=== PATIENT | female | born 1970 | race Caucasian/White ===

== ENCOUNTER 2024-08-09 17:11 | Outpatient (CLI) | payer OTHER, SELFPAY ==
--- OUTSIDE RECORDS SUMMARY | 2024-08-09 17:16 | XMS_ITS | Clinical Summary ---
Author Organization [facility] Address [address] [place] [address] Care Team Providers Care Grocery Clerk Stocking Name Role Phone Tiffany Lua MD Primary Care Provider [phone] Source Comments This disclosure is being made pursuant to the [employer] program and maynot contain all information available regarding this patient.[facility] Allergies Active Allergy Reactions Criticality Noted Date Comments Adhesive Tape Rash Low 01/14/2016 Bacitracin-Polymyxin B Hives High 07/03/2017 Iodine Hives High 01/14/2016 Latex Hives High 07/03/2017 Morphine And Codeine Nausea And Vomiting Medium 2015 Medications omeprazole (PRILOSEC) 40 MG capsule Take 1 (one) capsule by mouth 2 (two) times daily. 60 capsule 2 07/07/19 22 Active fluticasone NASAL (FLONASE) 50 MCG/ACT nasal spray USE TWO SPRAYS IN EACH NOSTRIL DAILY 16 g 1 08/14/19 22 Active nystatin (MYCOSTATIN) cream Apply topically 2 (two) times daily. to affected area for 1 week 30 g 10/19/19 22 Active promethazine (PHENERGAN) 25 MG tablet Take 1 (one) tablet by mouth every 6 (six) hours as needed for Nausea. 15 tablet 04/19/19 23 Active prochlorperazin e (COMPAZINE) 10 MG tablet Take 1 (one) tablet by mouth every 6 (six) hours as needed for Nausea. 15 tablet 04/25/19 23 Active Hyoscyamine Sulfate SL (HYOSOL/LEVSIN SL) 0.125 MG SUBL sublingual tablet 1-2 tabs SL every 4 hours as needed stomach cramping, nausea 30 tablet 07/31/19 23 Active metoprolol tartrate (LOPRESSOR) 100 MG tablet Take 1 tablet, 1 hour prior to the test; bring 2nd tablet with you to the test 03/03/19 23 Active topiramate (TOPAMAX) 25 MG tablet Take 1 (one) tablet by mouth nightly. 30 tablet 06/01/19 24 Active HYDROcodone-liu taminophen (NORCO) 5-325 MG per tabletIndicatio ns:Pain, dental Take 1 (one) tablet by mouth every 6 (six) hours as needed for Pain. 10 tablet 06/05/19 24 Active LORazepam (ATIVAN) 1 MG tabletIndicatio ns:Insomnia, unspecified type TAKE 1 TABLET BY MOUTH EVERY NIGHT AT BEDTIME NEEDED FOR SLEEP 20 tablet 08/03/19 24 Active silver sulfADIAZINE (SILVADENE) 1 % cream Apply to affected area on hand daily 50 g 08/10/19 24 Active butalbital-acet aminophen-caffe ine 50-325-40 MG per tabletIndicatio ns:Other migraine without status migrainosus, not intractable TAKE 1 TABLET BY MOUTH EVERY 4 HOURS NEEDED FOR HEADACHE 10 tablet 08/22/19 24 Active naltrexone 4.5 MG capsule Take 1 (one) capsule by mouth nightly. 90 capsule 3 09/11/19 24 Active fluconazole (DIFLUCAN) 150 MG tabletIndicatio ns:Vaginal discharge Take 1 tablet, then repeat in 72 hours 2 tablet 09/13/19 24 Active acyclovir (ZOVIRAX) 400 MG tablet TAKE 1 TABLET BY MOUTH TWICE DAILY 60 tablet 6 11/17/19 24 Active acyclovir (ZOVIRAX) 5 % cream APPLY TO VAGINAL SORE FOUR TIMES DAILY FOR 10 DAYS 30 g 04/05/19 25 Active lidocaine (LIDODERM) 5 % Place 1 (one) patch onto the skin daily. To pain area and Remove patch after 12 hours. 30 patch 11 04/19/19 25 Active tiZANidine (ZANAFLEX) 2 MG tablet TAKE 1 TABLET BY MOUTH AT BEDTIME NEEDED FOR MUSCLE PAIN 30 tablet 3 06/25/19 25 Active baclofen (LIORESAL) 10 MG tablet TAKE 1 TABLET BY MOUTH TWICE DAILY 60 tablet 3 06/25/19 25 Active amphetamine-dex troamphetamine (ADDERALL) 10 MG tabletIndicatio ns:Multiple sclerosis,Chron ic fatigue Take 1 (one) tablet (10 mg total) by mouth 2 (two) times daily. 60 tablet 06/26/19 25 Active valACYclovir (VALTREX) 500 MG tablet TAKE 1 TABLET BY MOUTH DAILY. 30 tablet 3 07/28/19 25 Active thyroid (Hesperus Thyroid) 90 MG tablet TAKE 1 TABLET BY MOUTH FIVE TIMES A WEEK AND ONE AND ONE-HALF TABLETS TWO DAYS WEEKLY 96 tablet 3 07/28/19 25 Active tirzepatide-padmini ght management (Zepbound) 15 MG/0.5ML SOAJ Inject 15 (fifteen) mg into the skin once a week. 2 mL 07/28/19 25 Active tirzepatide-padmini ght management (Zepbound) 15 MG/0.5ML SOAJ Inject 15 (fifteen) mg into the skin once a week. 6 mL 03/28/19 25 025 Discontinued valACYclovir (VALTREX) 500 MG tablet TAKE 1 TABLET BY MOUTH DAILY. 30 tablet 6 04/04/19 25 025 Discontinued thyroid (Hesperus Thyroid) 90 MG tablet TAKE 1 TABLET BY MOUTH FIVE TIMES A WEEK AND ONE AND ONE-HALF TABLETS TWO DAYS WEEKLY 96 tablet 3 05/05/19 25 025 Discontinued Zepbound 15 MG/0.5ML SOAJ INJECT 15MG INTO THE SKIN ONCE WEEKLY 6 mL 07/28/19 25 025 Discontinued(* Change in therapy (sends cancel message to pharmacy)) Active Problems Problem Noted Date Diagnosed Date Hypothyroidism 01/08/2023 Insomnia 01/08/2023 Migraine 01/08/2023 Class 2 severe obesity with serious comorbidity in adult 09/27/2020 Muscle cramps 02/24/2019 Chronic pain syndrome 02/13/2018 Chronic fatigue 07/11/2016 Neurogenic bladder 12/28/2015 GRANT (obstructive sleep apnea) 12/17/2015 Multiple sclerosis 12/17/2015 Lyme disease 12/17/2015 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 Hypovitaminosis D 07/13/2015 Encounters Date Type Department Care Team Description 07/29/[address] [phone] Brittany Wood RN upcoming surgery 07/27/[address] [phone] Tiffany Lua MD 07/18/2024 Orders Only [facility] Centralized Scanning Tiffany Lua MD 06/24/[address] [phone] Brittany Wood, RN order for mammogram 06/24/[address] [phone] Tiffany Lua MD Multiple sclerosis; Chronic fatigue 05/28/[address] [phone] Brittany Wood RN Neglect/Denial of Critical Care 05/17/2024 4:30 PM CDT Office Visit [address] [phone] Tiffany Lua MD Class 2 severe obesity due to excess calories with serious comorbidity in adult, unspecified BMI (Primary Dx) 05/16/[address] [phone] Tiffany Lua MD Multiple sclerosis; Chronic fatigue 05/13/[address] [phone] Brittany Wood RN PA for zepbound and H and P for consultation 05/11/[address] [phone] Tiffany Lua MD Appointment from Last 3 Months Immunizations Immunization Administration Dates Next Due Influenza (FLUBLOK) RIV4 12/23/2019 Pneumococcal Polysaccharide-23 (Pneumovax 23) PP SV23 01/24/2020 Tetanus and Diphtheria (Generic) Td 05/10/2007 Tetanus, diphtheria and acel lular pertussis (Adacel)Tdap 09/03/2021 Family History Medical History Relation Name Comments Hypertension Brother Early Cardiac Heart Disease Maternal Grandfather Heart disease Maternal Grandfather High cholesterol Maternal Grandfather Hypertension Maternal Grandfather Obesity Maternal Grandfather Vision loss Maternal Grandfather Arthritis Maternal Grandmother Asthma Maternal Grandmother Breast cancer Maternal Grandmother Cancer Maternal Grandmother Depression Maternal Grandmother Diabetes Maternal Grandmother Hearing loss Maternal Grandmother Hypertension Maternal Grandmother Obesity Maternal Grandmother Stroke Maternal Grandmother Asthma Mother Depression Mother Hypertension Mother Obesity Mother Arthritis Paternal Grandfather Diabetes Paternal Grandfather Hearing loss Paternal Grandfather Heart disease Paternal Grandfather High cholesterol Paternal Grandfather Hypertension Paternal Grandfather Vision loss Paternal Grandfather Arthritis Paternal Grandmother Depression Paternal Grandmother Hearing loss Paternal Grandmother Heart disease Paternal Grandmother Hypertension Paternal Grandmother Obesity Paternal Grandmother Relation Name Status Comments Brother Alive Daughter Alive Father Alive Maternal Grandfather Maternal Grandmother Mother Alive Paternal Grandfather Paternal Grandmother Alive Social History Tobacco Use Types Packs/Day Years Used Date Smoking Tobacco: Never Smokeless Tobacco: Never Tobacco Cessation:Counseling Given: Yes Alcohol Use Standard Drinks/Week Comments Yes 0 (1 standard drink = 0.6 oz pur e alcohol) PHQ-2 Answer Date Recorded PHQ-2 Total Score 0 08/30/2023 Comments No Sex and Gender Information Value Date Recorded Sex Assigned at Not on file Legal Sex Female 8:59 AM CDT Gender Identity Not on file Sexual Orientation Not on file Last Filed Vital Signs Vital Sign Reading Time Taken Comments Blood Pressure 124/88 05/17/2024 4:50 PM CDT Pulse 92 05/17/2024 4:50 PM CDT Temperature 36.4 C (97.6 F) 02/09/2024 3:54 PM LOOP PULLER Respiratory Rate 16 05/17/2024 4:50 PM CDT Oxygen Saturation 99% 05/17/2024 4:50 PM CDT Inhaled Oxygen Concentration - - Weight 81.2 kg (179 lb) 05/17/2024 4:50 PM CDT Height 162.6 cm (5' 4) 05/17/2024 4:50 PM CDT Body Mass Index 30.73 05/17/2024 4:50 PM CDT Plan of Treatment Upcoming Encounters Date Type Department Care Team (Late st Contact Info) Description 08/21/2024 3:45 PM CDT Appointment [facility] [address] [place] [phone] Tiffany Lua MD [address] [place] [phone] Health Maintenance Due Date Last Done Comments CT Colonography 1972 Colonoscopy 1972 Colorectal Cancer Screening 1972 Fecal DNA Test 1972 HPV 1972 Sigmoidoscopy 1972 Annual Wellness Visit 1990 FOBT/FIT 1992 Pneumococcal Vaccines 50+ (2 of 2 - PCV) 2022 01/24/2020 Zoster (Shingles) Vaccine 50+ (1 of 2) 2022 Breast Cancer Screening-Mammogram 01/27/2023 01/27/2021, 07/30/2018 COVID-19 Vaccine ( - season) 2023 Influenza Vaccine (#1) 2023 12/23/2019 Lab-Diabetes Screening 08/29/2024 , 02/23/2022, 09/22/2021, Additional history exists Lab-Hepatitis C Screening 08/29/2024 Po stponed from 1972 (Provider Discretion) Lab-Cholesterol Screening 08/29/20282023, 05/13/2020, 12/12/2016 Tetanus/Pertussis Vaccine Teen/Adult (3 - Td or Tdap) 09/04/2031 09/03/2021, 05/10/2007 RSV Adult (1 - 1-dose 75+ series) 10/16/2047 Cervical Cancer Screening Discontinued HIB Vaccine Aged Out No longer eligi ble based on patient's age to complete this topic HPV Vaccine (F:9-26YO,M: 9-22) Aged Out No longer eligible based on patient's age to complete this topic Hepatitis A Vaccine Aged Out No longe r eligible based on patient's age to complete this topic Hepatitis B Vaccine Discontinued IPV Vaccine Aged Out No longer eligi ble based on patient's age to complete this topic Meningococcal Conjugate Vaccine Aged Out No longer eligible based on patient's age to complete this topic Pap Smear Discontinued RSV < 20 Months Aged Out No longer el igible based on patient's age to complete this topic Procedures Procedure Name Priority Date/Time Associated Diagnosis Comments LIPID PANEL Routine 08/30/2023 11:00 AM CDT Routine general medical examination at a health care facility COMPREHENSIVE METABOLIC PANEL Routine 08/30/2023 11:00 AM CDT Routine general medical examination at a health care facility MM DIGITAL BILATERAL DIAGNOSTIC MAMMOGRAM Routine 01/27/2021 from Last 3 Months or Most Recently Relevant to Health Maintenance Results * (ABNORMAL) Lipid panel (08/30/2023 11:00 AM CDT) Cholesterol 209(H) 0 - 200 mg/dL [facility] Comment:Cholesterol borderli ne high, 200-239 mg/dL. Clinical correlation is essential. Triglycerides 189 0 - 200 mg/dL [facility] HDL Cholesterol 40(L) >60 mg/dL [facility] LDL, Calculated 131.2 mg/dL [facility] Comment: <100 Optimal 100-129 Near Optimal/Above Optimal 130-159 Borderline High 160-189 High >or =190 Very High Cholesterol/HDL Ratio 5.2 [facility] Comment:HDL/Chol Ratio Widener ge Risk 1:4.4-1:7.0, Clinical Correlation essential. Blood 08/30/2023 11:0 0 AM CDT 08/30/2023 11:00 AM CDT Comment:- Narrative [facility] - 08/30/2023 3:59 PM CDT Testing performed at [facility], [address] [place] [id number]. CLIA [id number] Phone [phone] Ext [phone] Pipe Line Inspector William Tanner MD Tiffany Lua MD LAB BLOOD ORDERABLES Final Result [facility] [address] [phone] * Comprehensive metabolic panel (08/30/2023 11:00 AM CDT) [facility] Glucose 91 60 - 100 mg/dL [facility] Comment: Fasting Plasma Glucose (FPG) <100 MG/DL Impaired Fasting Glucose (IFG) 100-125 MG/DL Provisional Diagnosis of Diabetes Mellitus > or = 126 MG/DL (Diagnosis Must Be Confirmed) BUN 13 10 - 20 mg/dL [facility] Creatinine 0.72 0.60 - 1.20 mg/dL [facility] Glomerular Filtration Rate Estimate 101 >90 mL/min/1.7 3m2 [facility] Comment:The estimated GFR peters s not been validated for women or patients with serious comorbid conditions, or with extremes of body size, muscle mass, or nutritional status. Calcium 9.9 8.4 - 10.2 mg/dL [facility] Sodium 139 136 - 145 mmol/L [facility] Potassium 4.2 3.5 - 4.6 mmol/L [facility] Chloride 105 99 - 111 mmol/L [facility] CO2 25.3 21.0 - 32.0 mmol/L [facility] Albumin 4.1 3.5 - 5.0 g/dL [facility] Total Protein 7.4 6.1 - 8.0 g/dL [facility] Bilirubin Total 0.3 0.2 - 1.2 mg/dL [facility] Alkaline Phosphatase 46 40 - 150 U/L [facility] AST 16 5 - 34 U/L [facility] ALT 20 0 - 55 U/L [facility] Blood 08/30/2023 11:0 0 AM CDT 08/30/2023 11:00 AM CDT Comment:- Narrative [facility] - 08/30/2023 3:59 PM CDT Testing performed at [facility], [address] [place] [address]. CLIA [id number] Phone [phone] Ext [phone] Pipe Line Inspector William Tanner MD Tiffany Lua MD LAB BLOOD ORDERABLES Final Result [facility] [address] [place] [address] [phone] * MM Digital Bilateral Diagnostic Mammogram (01/27/2021) Anatomical Region Laterality Modality Breast Bilateral Mammography Tiffany Lua MD IMG MAMMOGRAPHY ORDERABLES Final Result from Last 3 Months or Most Recently Relevant to Health Maintenance Insurance Care Teams Grocery Clerk Stocking Relationship Specialty Start Date End Date Tiffany Lua MD [address] [place] [phone] PCP - General Family Medicine 09/14/15
--- OUTSIDE RECORDS SUMMARY | 2024-08-09 17:16 | XMS_ITS | Encounter Summary ---
Author Organization [employer] Address [address] [place] [address] Care Team Providers Care Waiter/Waitress Take Out Name Role Phone Tiffany Lua MD Primary Care Provider [phone] Encounter Details Date Type Department Care Team (Late st Contact Info) Description 03/14/2024 Telephone [facility] [address] [place] [address] Tiffany Lua MD [address] [place] [address] Social History Tobacco Use Types Packs/Day Years Used Date Smoking Tobacco: Never Smokeless Tobacco: Never Alcohol Use Standard Drinks/Week Comments Yes 0 (1 standard drink = 0.6 oz pur e alcohol) PHQ-2 Answer Date Recorded PHQ-2 Total Score 0 08/30/2023 Comments No Sex and Gender Information Value Date Recorded Sex Assigned at Not on file Legal Sex Female 8:59 AM CDT Gender Identity Not on file Sexual Orientation Not on file documented as of this encounter Miscellaneous Notes * Telephone Encounter - Tiffany Lua MD - 03/14/2024 12:17 PM DIRECTOR PUBLIC SERVICE Again, the same labs were sent from [facility] that I can see on [employer] from 02/26/2024. None of the requested labs is sent, nor on [employer]. B12, progesterone, vit D, estradiol which is page 3 of the 02/14/2024 labs. The orders are scanned into system. [facility] lab to check why these not done. Jss CTOR PUBLIC SERVICE * Telephone Encounter - Tiffany Lua MD - 03/14/2024 12:09 AM DIRECTOR PUBLIC SERVICE I called [facility] Med Records again - on 03/07/2024. Looking for pending labs from 02/26/2024 that are not in [employer]: Vit D, Vit B12, progesterone, estradiol. jss CTOR PUBLIC SERVICE documented in this encounter Plan of Treatment Upcoming Encounters Date Type Department Care Team (Late st Contact Info) Description 08/21/2024 3:45 PM CDT Appointment [facility] [address] [place] [address] Tiffany Lua MD [address] [place] [address] documented as of this encounter Visit Diagnoses Not on filedocumented in this encounter Additional Health Concerns Assessment Noted Time PHQ-9 Depression Total Score: 13 023 11:44 AM DIRECTOR PUBLIC SERVICE A Body Mass Index follow-up plan has been documented for the patient 05/24/2016 12:10 AM CDT documented as of this encounter Care Teams Waiter/Waitress Take Out Relationship Specialty Start Date End Date Tiffany Lua MD [address] [place] [address] PCP - General Family Medicine 09/14/15 documented as of this encounter
--- OUTSIDE RECORDS SUMMARY | 2024-08-09 17:17 | XMS_ITS | Encounter Summary ---
Author Organization [facility] Address [address] [facility] [place] [address] Phone Care Team Providers Care Automatic Door Mechanic Name Role Phone Tiffany Lua MD Primary Care Provider + Tiffany Lua MD Unavailable [phone] Encounter Details Date Type Department Care Team (Late st Contact Info) Description 10/04/2022 Lab Requisition [facility] [address] [place] [address] Tiffany Lua MD [address] [place] [address] Social History Tobacco Use Types Packs/Day Years Used Date Smoking Tobacco: Never Assessed Comments No Sex and Gender Information Value Date Recorded Sex Assigned at Not on file Legal Sex Female 4:24 PM CDT Gender Identity Not on file Sexual Orientation Not on file documented as of this encounter Plan of Treatment Not on file documented as of this encounter Procedures Procedure Name Priority Date/Time Associated Diagnosis Comments O & P, TRAVEL HX OR IMMUNOCOMPROMISED, FECES, DIAMOND OPE Routine 10/03/2022 6:32 PM CDT documented in this encounter Results * O & P, TRAVEL HX OR IMMUNOCOMPROMISED, FECES, DIAMOND OPE (10/03/2022 6:32 PM CDT) OPE, OVA AND PARASITE, MICROSCOPY, F SEE NOTE 10/11/2022 12:30 PM CDT [facility] Comment: SOURCE: STOOL, STLP OVA AND PARASITE, MICROSCOPY, F FINAL No parasites seen. Cryptosporidium, Cyclospora, and microsporidia are not readily detected by this method. Single negative specimen does not rule out parasitic infection. Test Performed by: [facility] [place] [address] Client Services Assistant: Sammy Hidalgo M.D. Ph.D.; CLIA# [id number] Stool Non-Phlebotomy Collection / Unknown 10/03/2022 6:32 PM CDT 10/04/2022 9:49 PM CDT us Tiffany Lua MD LAB SEND OUTS Final Re sult [facility] documented in this encounter Visit Diagnoses Not on filedocumented in this encounter Care Teams Automatic Door Mechanic Relationship Specialty Start Date End Date Tiffany Lua MD [address] [place] [address] PCP - General Family Medicine 04/26/22 Tiffany Lua MD [address] [place] [address] Family Medicine 04/26/22 documented as of this encounter
--- OUTSIDE RECORDS SUMMARY | 2024-08-09 17:17 | XMS_ITS | Encounter Summary ---
Author Organization [facility] Health[facility] Address [address] [facility] [place] [address] Phone Care Team Providers Care Swatch Cutter Name Role Phone Tiffany Lua MD Primary Care Provider + Tiffany Lua MD Primary Care Provider + Tiffany Lua MD Unavailable [phone] Encounter Details Date Type Department Care Team (Late st Contact Info) Description 02/03/2021 Lab Requisition [facility] [address] [place] [address] Tiffany Lua MD [address] [place] [address] Social History Tobacco Use Types [...] Procedure Name Priority Date/Time Associated Diagnosis Comments OVA AND PARASITE, CONCENTRATE AND PERMANENT SMEAR, MICROSCOPY, FECES, DIAMOND OAP Routine 02/03/2021 8:09 AM BRIDGE WORKER documented in this encounter Results * OVA AND PARASITE, CONCENTRATE AND PERMANENT SMEAR, MICROSCOPY, FECES, DIAMOND OAP (02/03/2021 8:09 AM BRIDGE WORKER) PARASITIC EXAMINATION (06184) SEE NOTE 02/07/2021 4:04 PM BRIDGE WORKER [facility] Comment: SOURCE: STOOL OVA AND PARASITE, MICROSCOPY, F FINAL No parasites seen. Cryptosporidium, Cyclospora, and microsporidia are not readily detected by this method. Single negative specimen does not rule out parasitic infection. Test Performed by: [facility] [address] [place] [address] Poultry Veterinarian: Sammy Hidalgo M.D. Ph.D.; CLIA# [id number] Other 02/03/2021 8:09 AM BRIDGE WORKER 02/03/2021 8:27 PM BRIDGE WORKER us Tiffany Lua MD BODY FLUIDS & STOOLS ORD ERABLES Final Result [address] [address], documented in this encounter Visit Diagnoses Not on filedocumented in this encounter Additional Health Concerns Infection Onset Date Last Indicated Resolved Time C. difficile Rule-Out 02/03/2021 02/03/20212020 10:43 PM BRIDGE WORKER documented as of this encounter Care Teams Swatch Cutter Relationship Specialty Start Date End Date Tiffany Lua MD [address] [place] [address] [phone] PCP - General Family Medicine 07/13/15 04/25/22 Tiffany Lua MD [address] [place] [address] [phone] PCP - General Family Medicine 04/26/22 Tiffany Lua MD [address] [place] [address] [phone] Family Medicine 04/26/22 documented as of this encounter
--- OUTSIDE RECORDS SUMMARY | 2024-08-09 17:17 | XMS_ITS | Clinical Summary ---
Author Organization [facility] Address [address] [place] [address] Phone Care Team Providers Care Associate Sales Name Role Phone Tiffany Lua MD Primary Care Provider + Tiffany Lua MD Unavailable [phone] Allergies Active Allergy Reactions Criticality Noted Date Comments Codeine Other (see Comments) 07/09/2015 Iodine Hives 12/28/2015 Morphine Rash 04/25/2022 Morphine And Codeine Vomiting 11/28/2005 Sulfa Antibiotics Vomiting 11/28/2005 Sulfa Antibiotics Other (see Comments) 07/09/19 16 Adhesive Tape Rash 07/09/2015 Medications acyclovir (ZOVIRAX) 400 MG Tablet Take 400 mg by mouth daily. Active GABAPENTIN PO Take 400 mg by mouth 2 times daily. Active omeprazole (PRILOSEC) 20 MG CAPSULE DELAYED RELEASE Take 20 mg by mouth daily. Reported on 07/11/2016 Active nabumetone (RELAFEN) 500 MG Tablet Take 500 mg by mouth 2 times daily. Active HYDROcodone-liu taminophen (NORCO) 5-325 MG Tablet Take 1 Tab by mouth every 4 hours as needed for Pain. Active tiZANidine (ZANAFLEX) 2 MG Capsule Take 2 mg by mouth 2 times daily as needed. Reported on 07/11/2016 Active LORazepam (ATIVAN) 1 MG Tablet Take 1 mg by mouth 3 times daily as needed. Active thyroid (ARMOUR THYROID) 60 MG Tablet Take 90 mg by mouth daily. Active Cholecalciferol (VITAMIN D3) 69580 UNITS Tablet Take by mouth daily. Active biotin 300 MCG Tablet Take 300 mcg by mouth daily. Active other Low Dose Naltrexone (LDN) 4.5 mg po daily 90 Each 3 7 Active amphetamine-dex troamphetamine (ADDERALL) 10 MG Tablet Take 1 Tab by mouth 2 times daily. 60 Tab 0 7 Active amphetamine-dex troamphetamine (ADDERALL) 10 MG Tablet Take 1 Tab by mouth 2 times daily. 60 Tab 0 7 Active amphetamine-dex troamphetamine (ADDERALL) 10 MG Tablet Take 1 Tab by mouth 2 times daily. 60 Tab 0 7 Active minocycline (MINOCIN, DYNACIN) 100 MG Capsule Take 100 mg by mouth 2 times daily. Active carBAMazepine (CARBATROL) 100 MG CAPSULE SR 12 HR Take 1 Cap by mouth 2 times daily (with meals). 360 Cap 3 9 Active Active Problems Problem Noted Date Diagnosed Date Chronic fatigue 07/11/2016 Neurogenic bladder 12/28/2015 Hypovitaminosis D 07/13/2015 MS (multiple sclerosis) 07/13/2015 Social History Tobacco Use Types Packs/Day Years Used Date Smoking Tobacco: Former Smokeless Tobacco: Never Alcohol Use Standard Drinks/Week Comments No 0 (1 standard drink = 0.6 oz pur e alcohol) Comments No Sex and Gender Information Value Date Recorded Sex Assigned at Not on file Legal Sex Female 4:24 PM CDT Gender Identity Not on file Sexual Orientation Not on file Last Filed Vital Signs Vital Sign Reading Time Taken Comments Blood Pressure 111/78 04/26/2022 1:38 AM BELL ATTENDANT Pulse 80 04/26/2022 1:38 AM BELL ATTENDANT Temperature 37.1 C (98.7 F) 04/25/2022 3:55 PM BELL ATTENDANT Respiratory Rate 14 04/26/2022 1:38 AM BELL ATTENDANT Oxygen Saturation 95% 04/26/2022 1:38 AM BELL ATTENDANT Inhaled Oxygen Concentration - - Weight 93 kg (205 lb) 04/25/2022 3:55 PM BELL ATTENDANT Height 162.6 cm (5' 4) 04/25/2022 3:55 PM BELL ATTENDANT Body Mass Index 35.19 04/25/2022 3:55 PM BELL ATTENDANT Plan of Treatment Health Maintenance Due Date Last Done Comments Hepatitis C Virus (HCV) Screening 1972 Mammogram 1972 Hepatitis B Immunization (1 of 3 - 19+ 3-dose series) 10/16/1991 Cologuard 2017 Colonoscopy 2017 Colorectal Cancer Screening 2017 Immunochemical Fecal Occult Blood 2017 Pneumococcal Immunization (5 0+ years) (1 of 1 - PCV) 2022 Zoster Immunization (1 of 2) 2022 SARS-COV-2 Immunization (1 - 2023- season) 2023 Influenza Immunization (Seas on Ended) 2024 12/23/2019 Respiratory Syncytial Virus (RSV) Immunization (Adult) (1 - 1-dose 75+ series) 10/16/2047 DTaP/Tdap/Td Immunization Discontinued 2021, 05/10/2007 TdaP Immunization Completed 09/03/2021 Human Papillomavirus (HPV) Immunization Aged Out No longer eligible based on patient's age to complete this topic Meningococcal Immunization (ACWY) Aged Out No longer eligible based on patient's age to complete this topic Rotavirus Immunization Aged Out No lo nger eligible based on patient's age to complete this topic Insurance [employer] ASA Care Teams Associate Sales Relationship Specialty Start Date End Date Tiffany Lua MD [address] [place] [address] PCP - General Family Medicine 04/26/22 Tiffany Lua MD [address] [place] [address] Family Medicine 04/26/22
--- OUTSIDE RECORDS SUMMARY | 2024-08-09 17:17 | XMS_ITS | Encounter Summary ---
Author Organization [employer] Address [address] [place] [address] Care Team Providers Care Senior Net Developer Architect Name Role Phone Tiffany Lua MD Primary Care Provider [phone] Reason for Visit * Reason Comments Medication Refill Encounter Details Date Type Department Care Team (Late st Contact Info) Description 07/27/2024 Refill [facility] [address] [place] [address] Tiffany Lua MD [address] [place] [address] Social History Tobacco Use Types [...] Telephone Encounter - Tiffany Lua MD - 07/27/2024 10:43 AM CDT She contacted my phone at [phone] asking for refills since her insurance runs out today. I called to verify how she is taking the medicine because 3 month supply was filled in February. She states she isusing it every 10 days. Last fill at pharmacy was 06/19/2024. Discussed needs to be careful with bowel motility with the way she is taking it. The 02/2024 order was for 3 months - pharmacy only giving one month at a time. Therefore, script this time for only one month. Jss documented in this encounter Plan of Treatment Upcoming Encounters Date Type Department Care Team (Late st Contact Info) Description 08/21/2024 3:45 PM CDT Appointment [facility] [address] [place] [address] Tiffany Lua MD [address] [place] [address] documented as of this encounter Visit Diagnoses Not on filedocumented in this encounter Additional Health Concerns Assessment Noted Time PHQ-9 Depression Total Score: 13 023 11:44 AM SODA ROOM OPERATOR A Body Mass Index follow-up plan has been documented for the patient 05/24/2016 12:10 AM CDT documented as of this encounter Care Teams Senior Net Developer Architect Relationship Specialty Start Date End Date Tiffany Lua MD [address] [place] [address] PCP - General Family Medicine 09/14/15 documented as of this encounter
--- OUTSIDE RECORDS SUMMARY | 2024-08-09 17:17 | XMS_ITS | Encounter Summary ---
Author Organization [facility] Address [address] [place] [address] Phone Care Team Providers Care Food Technician Name Role Phone Tiffany Lua MD Primary Care Provider + Tiffany Lua MD Primary Care Provider + Tiffany Lua MD Unavailable [phone] Encounter Details Date Type Department Care Team (Late st Contact Info) Description 07/10/2020 Lab Requisition [facility] [address] [place] [address] Tiffany Lua MD [address] [place] [address] Social History Tobacco Use Types [...] Procedure Name Priority Date/Time Associated Diagnosis Comments SARS CORONOVIRUS-2 IGG Routine 07/10/2020 10:41 AM CDT documented in this encounter Results * SARS CORONOVIRUS-2 IGG (07/10/2020 10:41 AM CDT) INDEX (S/C) 0.0 <1.4 S/C [facility] [id number] A 07/11/2020 9:45 AM CDT [facility], SARS-COV-2 IGG Negative Negative [facility] [id number] A 07/11/2020 9:45 AM CDT [facility] Blood 07/10/2020 10:4 1 AM CDT 07/10/2020 9:44 PM CDT Narrative [facility] - 07/11/2020 9:45 AM CDT This test has been authorized by the FDA under an Emergency Use Authorization (EUA) only. Negative results do not rule out SARS-CoV-2 infection, particularly in those who have been in contact with the virus. Follow-up testing with a molecular diagnostic should be considered to rule out infection in these individuals. Results from antibody testing should not be used as the sole basis to diagnose or exclude SARS-CoV-2 infection or to inform infection status. Positive results may be due to past or present infection with guu-QAIT-IbM-2 coronavirus strains, such as coronavirus HKU1, NL63, OC43, or 229E. Not for the screening of donated blood. IGG: Information for Healthcare Providers: https://www.fda.gov/media/301020/download Information for Patients: https://www.fda.gov/media/429155/download IGM: Information for Healthcare Providers: https://www.fda.gov/media/497705/download Information for Patients: https://www.fda.gov/media/481436/download us Tiffany Lua MD CHEMISTRY ORDERABLES Fin al Result [facility] [address] [place] [address], documented in this encounter Visit Diagnoses Not on filedocumented in this encounter Additional Health Concerns Infection Onset Date Last Indicated Resolved Time C. difficile Rule-Out 02/03/2021 02/03/20212020 10:43 PM FRANCHISE DEVELOPMENT MANAGER documented as of this encounter Care Teams Food Technician Relationship Specialty Start Date End Date Tiffany Lua MD [address] [place], [place] [id number] PCP - General Family Medicine 07/13/15 04/25/22 Tiffany Lua MD [address], [place] [id number] PCP - General Family Medicine 04/26/22 Tiffany Lua MD [address] [place] [address] Family Medicine 04/26/22 documented as of this encounter
--- OUTSIDE RECORDS SUMMARY | 2024-08-09 17:17 | XMS_ITS | Encounter Summary ---
Author Organization [employer] Address [address] [place] [address] Care Team Providers Care Recreational Assistant Name Role Phone Tiffany Lua MD Primary Care Provider [phone] Reason for Visit * Reason Onset Date Comments upcoming surgery 07/29/2024 Encounter Details Date Type Department Care Team (Late st Contact Info) Description 07/29/2024 Telephone [facility] [address] [place] [address] Brittany Wood RN [address] [place] [address] upcoming surgery Social History Tobacco Use Types Packs/Day Years [...] Telephone Encounter - Tiffany Lua MD - 08/09/2024 12:22 PM CDT Noted. Jss * Telephone Encounter - Brittany Wood RN - 08/09/2024 9:52 AM CDT Called patient to see what was going on. She states that the surgeon said they would measure when they were doing the surgery. Then the next day and anesthe. Called her the next day they said due to her multiple sclerosis she has to have this procedure in a hospital. So they have now referred her to [facility], and hopefully she will have surgery on September 03, she has some upcominglabs and testing. She says her stomach hurts all the time and they surgeon thinks this will help. Insurance is saying this is cosmetic and she states it is not. She states she has to put Nystatin powder on this area 4 times a day and yesterday she got busy and did not get this done and by the time she got home, the area smelled like a smelly armpit. She is asking for dr to measure this externally. Appointment made. Brittany Wood RN * Telephone Encounter - Tiffany Lua MD - 08/07/2024 5:29 PM CDT None. Jss * Telephone Encounter - Renetta Hazel CMA - 08/07/2024 4:42 PM CDT Have you received? * Telephone Encounter - Tiffany Lua MD - 07/30/2024 7:13 AM CDT Await the surgeon information. Jss * Telephone Encounter - Brittany Wood RN - 07/29/2024 2:00 PM CDT I called patient and she was at the surgeon's office. This information is needed for her insurance,she has new insurance that started today. She has to have this documented by the surgeon and the PCP. I asked her to contact this office after that appointment. Brittany Wood RN * Telephone Encounter - Tiffany Lua MD - 07/29/2024 12:15 PM CDT She needs to have the surgeon contact me exactly what he wants for information. Otherwise, did the surgeon not examine her himself to have documented this for his surgery? Jss * Telephone Encounter - Brittany Wood RN - 07/29/2024 12:05 PM CDT Voicemail from patient stating that she has an upcoming surgery and she has to have it documented how many finger widths her diastasis is. She said she needs seen tomorrow to have this documented. Have come to urgent care tomorrow morning? Brittany Wood RN documented in this encounter Plan of Treatment Upcoming Encounters Date Type Department Care Team (Late Contact Info) Description 08/21/2024 3:45 PM CDT Appointment [facility] [address] [place] [address] Tiffany Lua MD [address] [place] [address] documented as of this encounter Visit Diagnoses Not on filedocumented in this encounter Additional Health Concerns Assessment Noted Time PHQ-9 Depression Total Score: 13 023 11:44 AM FELLER MACHINE OPERATOR A Body Mass Index follow-up plan has been documented for the patient 05/24/2016 12:10 AM CDT documented as of this encounter Care Teams Recreational Assistant Relationship Specialty Start Date End Date Tiffany Lua MD [address] [place] [address] PCP - General Family Medicine 09/14/15 documented as of this encounter
--- OUTSIDE RECORDS SUMMARY | 2024-08-09 17:17 | XMS_ITS | Encounter Summary ---
Author Organization [facility] Address [address] [facility] [place] [address] Phone Care Team Providers Care Photo Engraver Name Role Phone Tiffany Lua MD Primary Care Provider + Tiffany Lua MD Primary Care Provider + Tiffany Lua MD Unavailable [phone] Encounter Details Date Type Department Care Team (Late st Contact Info) Description 02/03/2021 Lab Requisition [facility] [address] [place] [address] Tiffany Lua MD [address] [place] [address] Social History Tobacco Use Types [...] Procedure Name Priority Date/Time Associated Diagnosis Comments C. DIFFICILE BY PCR Routine 02/03/2021 8 :09 AM OPTICAL MECHANIC APPRENTICE documented in this encounter Results * C. DIFFICILE BY PCR (02/03/2021 8:09 AM OPTICAL MECHANIC APPRENTICE) C DIFF TOXIN DNA BY PCR Negative Negative, Invalid [facility] CEPHEID GENEXPERT 02/03/2021 10:43 PM OPTICAL MECHANIC APPRENTICE [facility] Other STOOL SPECIMEN / Unknown 02/03/2021 8:09 AM OPTICAL MECHANIC APPRENTICE 02/03/2021 8:29 PM OPTICAL MECHANIC APPRENTICE us Tiffany Lua MD MICROBIOLOGY - GENERAL O RDERABLES Final Result [facility] [address] [place] [address], documented in this encounter Visit Diagnoses Not on filedocumented in this encounter Additional Health Concerns Infection Onset Date Last Indicated Resolved Time C. difficile Rule-Out 02/03/2021 02/03/20212020 10:43 PM OPTICAL MECHANIC APPRENTICE documented as of this encounter Care Teams Photo Engraver Relationship Specialty Start Date End Date Tiffany Lua MD [address] [place] [address] PCP - General Family Medicine 07/13/15 04/25/22 Tiffany Lua MD [address] [place] [id number] PCP - General Family Medicine 04/26/22 Tiffany Lua MD [address] [place] [address] Family Medicine 04/26/22 documented as of this encounter
--- OUTSIDE RECORDS SUMMARY | 2024-08-09 17:17 | XMS_ITS | Encounter Summary ---
Author Organization [facility] Address [address] [place] [address] Care Team Providers Care Counter Sales Representative Name Role Phone Tiffany Lua MD Primary Care Provider [phone] Encounter Details Date Type Department Care Team (Late Contact Info) Description 07/18/2024 Orders Only [facility] Centralized Scanning Tiffany Lua MD [address] [place] [address] Social History Tobacco Use Types [...] as of this encounter Plan of Treatment Upcoming Encounters Date Type Department Care Team (Late Contact Info) Description 08/21/2024 3:45 PM CDT Appointment [facility] [address] [place] [address] Tiffany Lua MD [address] [place] [address] documented as of this encounter Procedures Procedure Name Priority Date/Time Associated Diagnosis Comments LAB MISC Routine 02/26/2024 7:25 AM HOTEL CASINO FLOORPERSON TSH Routine 02/26/2024 7:25 AM HOTEL CASINO FLOORPERSON COMPREHENSIVE METABOLIC PANEL Routine 02/26/2024 7:25 AM HOTEL CASINO FLOORPERSON documented in this encounter Results * Laboratory Miscellaneous (02/26/2024 7:25 AM HOTEL CASINO FLOORPERSON) Blood BLOOD SPECIMEN / Unknown Tiffany Lua MD LAB BLOOD ORDERABLES Final Result * Comprehensive metabolic panel (02/26/2024 7:25 AM HOTEL CASINO FLOORPERSON) Blood us Tiffany Lua MD LAB BLOOD ORDERABLES Final Result * TSH (02/26/2024 7:25 AM HOTEL CASINO FLOORPERSON) Blood BLOOD SPECIMEN / Unknown Tiffany Lua MD LAB BLOOD ORDERABLES Final Result Performing Organization Address City/State/[facility] Co de Phone Number EXTERNAL NON UPH - NO INTERFACE documented in this encounter Visit Diagnoses Not on filedocumented in this encounter Additional Health Concerns Assessment Noted Time PHQ-9 Depression Total Score: 13 023 11:44 AM HOTEL CASINO FLOORPERSON A Body Mass Index follow-up plan has been documented for the patient 05/24/2016 12:10 AM CDT documented as of this encounter Care Teams Counter Sales Representative Relationship Specialty Start Date End Date Tiffany Lua MD [address] [place] [address] PCP - General Family Medicine 09/14/15 documented as of this encounter
--- OUTSIDE RECORDS SUMMARY | 2024-08-09 17:17 | XMS_ITS | Data Portability ---
Author Organization [facility], [address] [place] [address] [place]rology ([place]) Address [address] [place] [address] Care Team Providers Care Milking System Installer Name Role Phone ITZEL FORBES Primary Care Provider Assessment No assessment recorded. Plan of Treatment Reminders Order Date Submit Date Provider Last Modified By Organization Details Last Modified Time Details Appointments None recorded. Lab None recorded. Referral None recorded. Procedures None recorded. Surgeries None recorded. Imaging None recorded. Medication Orders Augmentin 875 mg-125 mg tablet 2023 [id number], [address], [place], [id number], 14:32:24 fluconazole 150 mg tablet 2023 024 [id number], [address], [place], [id number], 14:32:24 Patient TargetsNo targets recorded. Patient Instructions Encounter Date Encounter Id Patient Instructions Last Modified By Organization Details Last Modified Time 06/04/2023 [id number] Take antibiotics as prescribed. Practice good dental hygiene by brushing teeth 2-3x daily. Floss daily. See a dentist every 6 months for regular cleanings. Tylenol or Motrin may be used as needed for pain. Follow up with dentist as soon as possible. We discussed the expected course of improvement, and instructed to seek emergency medical care for any new or worsening symptoms. Patient voices understanding of all and is agreeable to the plan of care. [email or web address] Not available 06/04/2023 15:50:25 Reason for Referral None Reported. Problems Name Problem SNOMED Code Status Onset Date Resolution Date Notes Provider Name and Address Organization Details Recorded Time Disorder of teeth AND/OR supporting structures 498338391 Active 2023 REECE WAGONER APRN-PHOTOGRAPHER STILL [address] [place] [address], [phone], [facility] 4 14:30:12 Candidiasis of vagina 73639846 Active 2023 REECE WAGONER APRN-PHOTOGRAPHER STILL [address] [place] [address], [phone], [facility] 4 14:31:50 Problem Notes None recorded. Medical Equipment None Reported. Medications Name Sig Start Date Stop Date Status Note LastModified by Organization Details LastModified Time clindamycin HCl 300 mg capsule TAKE 2 CAPSULES BY MOUTH NOW THEN TAKE 1 CAPSULE THREE TIMES DAILY UNTIL ALL TAKEN active Not Available Not Available No t Available fluconazole 150 mg tablet TAKE 1 TABLET BY MOUTH EVERY DAY DIRECTED FOR 10 DAYS active Not Available Not Available No t Available hydrocodone 5 mg-acetaminoph en 325 mg tablet TAKE 1 TABLET BY MOUTH EVERY 6 HOURS NEEDED FOR PAIN active Not Available Not Available No t Available dextroamphetam ine-amphetamin e 10 mg tablet active Not Available Not Availab le Not Available topiramate 25 mg tablet TAKE 1 TABLET BY MOUTH NIGHTLY active Not Available Not Available No t Available acyclovir 400 mg tablet active Not Available Not Available No t Available lorazepam 1 mg tablet active Not Available Not Available Not Available methylphenidat e ER 36 mg tablet,extende d release 24 hr active Not Available Not Available Not Available amoxicillin 875 mg-potassium clavulanate 125 mg tablet TAKE 1 TABLET BY MOUTH EVERY 12 HOURS WITH MEALS FOR 10 DAYS active Not Available Not Available No t Available acyclovir active Not Available Not Nirmala ilable Not Available Adderall active Not Available Not Avai lable Not Available Vitals Date Recorded Body weight Body temperature Heart rate Respiratory rate Oxygen saturation Oxygen saturation in Arterial blood by Pulse oximetry Systolic blood pressure Diastolic blood pressure Provider Name and Address Organization Details Last Updated DateTime 4 71204.0 7 g 97.3 [degF] 90 /min 16 /min 98 % 98 % 128 mm[Hg] 82 mm[Hg] Tess Lloyd [facility] 14:14:30 Social History None recorded. Functional Status None recorded. Mental Status None recorded. Family History Nothing Reported. Medical History No medical history recorded. Gynecological History Statement/Question Response Menses Monthly N Obstetrics History GPAL:G 0 P 0 0 0 0 Past Encounters Encounter ID Performer Location Encounter Start Date Encounter Closed Date Diagnosis/Indication Diagnosis SNOMED-CT Code Diagnosis ICD10 Code Diagnosis Note [id number] REECE WAGONER APRN-PHOTOGRAPHER STILL [facility] ([place]) [address] [place] [address] 06/04/2023 14:02:18 06/04/2023 14:35:47 Disorder of teeth AND/OR supporting structures 395903942 K08.9 Candidiasis of vagina 72 773312 B37.31 Health Concerns Section Related Observation LastModified by Organization Detai ls LastModified Time None Recorded Concern Status LastModified by Organization Details LastModified Time None Recorded Advance Directives Directive None Recorded Payers Insurance Date Sequence Insurance Name Policy Number Policy Dorsey Covered Member ID Dorsey Member ID Guarantor Name 06/04/2023 1 [id number] [id number] Gracy Machuca Rob [id number] Gracy Davis Notes Date Note Type Note Provider Name and Address Organization Details Recorded Time 06/04/2023 text/html Gracy Davis presents to the clinic with complaints of left upper dental pain and foul taste for the past two weeks. She has had a broken tooth to the site for a year now. Reports that she saw her dentist two weeks ago and received Clindamycin for 14 days. The symptoms have not improved. She denies any fever, chills, chest discomfort, shortness of breath, dysphagia. She is having maxillary sinus and left ear pain. Also of note, she takes Diflucan daily due to chronic yeast infection. Past medical history includes Lyme Disease and MS. She has never been a smoker. ANGELITA PENA [address] [place] [address], [phone], [place] [facility] 06/04/2023 15:50:30 OBGyn Episode No OBEpisode recorded.
--- OUTSIDE RECORDS SUMMARY | 2024-08-09 17:17 | XMS_ITS | Encounter Summary ---
Author Organization [facility] Address [address] [facility] [place] [address] Phone Care Team Providers Care Anode Rebuilder Name Role Phone Tiffany Lua MD Primary Care Provider + Tiffany Lua MD Primary Care Provider + Tiffany Lua MD Unavailable [phone] Encounter Details Date Type Department Care Team (Late st Contact Info) Description 02/25/2022 Lab Requisition [facility] Laboratory Services [address] [place] [address] Tiffany Lua MD [address] [place] [address] Social History Tobacco Use Types [...] Procedure Name Priority Date/Time Associated Diagnosis Comments C-REACTIVE PROTEIN (CRP) HIGH SENSITIVE Routine 02/24/2022 4:19 PM ENGINEER INTERN documented in this encounter Results * (ABNORMAL) C-REACTIVE PROTEIN (CRP) HIGH SENSITIVE (02/24/2022 4:19 PM ENGINEER INTERN) CRP ULTRAQUANT 6.48(H) <5.00 mg/L 02/25/2022 9:42 PM ENGINEER INTERN [facility] Blood 02/24/2022 4:19 PM ENGINEER INTERN 02/25/2022 9:17 PM ENGINEER INTERN us Tiffany Lua MD CHEMISTRY ORDERABLES Fin al Result [facility] [address] [place] [address], documented in this encounter Visit Diagnoses Not on filedocumented in this encounter Care Teams Anode Rebuilder Relationship Specialty Start Date End Date Tiffany Lua MD [address] [place] [address] PCP - General Family Medicine 07/13/15 04/25/22 Tiffany Lua MD [address] [place] [address] PCP - General Family Medicine 04/26/22 Tiffany Lua MD [address] [place] [address] Family Medicine 04/26/22 documented as of this encounter
--- OUTSIDE RECORDS SUMMARY | 2024-08-09 17:17 | XMS_ITS | Encounter Summary ---
Author Organization [facility] Address [address] [facility] [place] [address] Phone Care Team Providers Care Tattoo Designer Name Role Phone Tiffany Lua MD Primary Care Provider + Tiffany Lua MD Primary Care Provider + Tiffany Lua MD Unavailable [phone] Encounter Details Date Type Department Care Team (Late st Contact Info) Description 12/14/2019 Lab Requisition [facility] Laboratory Services [address] [place] [address] Mitch Tovar MD [address] [place] [address] Social History Tobacco Use Types Packs/Day Years [...] Procedure Name Priority Date/Time Associated Diagnosis Comments CULTURE, URINE Routine 12/13/2019 7:30 PM CDT documented in this encounter Results * CULTURE, URINE (12/13/2019 7:30 PM CDT) CULTURE RESULTS GROUP B STREPTOCOCCUS 12/15/2019 3:11 PM CDT [facility] Comment:DRUG OF CHOICE IS AM PICILLIN OR PENICILLIN CULTURE RESULTS ALSO MIXED GROWTH OF DISTAL URETHRA CONTAMINANTS. 12/15/2019 3:11 PM CDT [facility] Culture URINE SPECIMEN COLLECTION, CLEAN CATCH / Unknown 12/13/2019 7:30 PM CDT 12/14/2019 2:51 PM CDT us Mitch Tovar MD MICROBIOLOGY - GENERAL ORDERABLE S Final Result [facility] [address] [place] [address], documented in this encounter Visit Diagnoses Not on filedocumented in this encounter Additional Health Concerns Infection Onset Date Last Indicated Resolved Time C. 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
--- OUTSIDE RECORDS SUMMARY | 2024-08-09 17:17 | XMS_ITS | Encounter Summary ---
Author Organization [facility] Address [address] [facility] [place] [address] Phone Care Team Providers Care Title Insurance Sales Representative Name Role Phone Tiffany Lua MD Primary Care Provider + Tiffany Lua MD Primary Care Provider + Tiffany Lua MD Unavailable [phone] Encounter Details Date Type Department Care Team (Late st Contact Info) Description 02/03/2021 Lab Requisition [facility] Laboratory Services [address] [place] [address] Tiffany Lua MD [address] [place] [address] Social History Tobacco Use Types [...] Procedure Name Priority Date/Time Associated Diagnosis Comments STOOL, CRYPTOSPORIDIUM ANTIGEN Routine 02/03/2021 8:09 AM CASEWORKER INTAKE STOOL, GIARDIA ANTIGEN Routine 8:09 AM CASEWORKER INTAKE documented in this encounter Results * STOOL, CRYPTOSPORIDIUM ANTIGEN (02/03/2021 8:09 AM CASEWORKER INTAKE) CRYPTOSPORIDIUM AG Negative Negative 2020 1:53 PM CASEWORKER INTAKE [facility] Other STOOL SPECIMEN / Unknown 02/03/2021 8:09 AM CASEWORKER INTAKE 02/03/2021 8:26 PM CASEWORKER INTAKE us Tiffany Lua MD BODY FLUIDS & STOOLS ORD ERABLES Final Result Performing Organization Address City/[facility] Co de Phone Number [facility] [address] [place] [address], [place] * STOOL, GIARDIA ANTIGEN (02/03/2021 8:09 AM CASEWORKER INTAKE) GIARDIA ANTIGEN Negative Negative 02/05/2021 1:53 PM CASEWORKER INTAKE [facility] Other STOOL SPECIMEN / Unknown 02/03/2021 8:09 AM CASEWORKER INTAKE 02/03/2021 8:27 PM CASEWORKER INTAKE us Tiffany Lua MD BODY FLUIDS & STOOLS ORD ERABLES Final Result Performing Organization Address [facility] de Phone Number [facility] [address] [place] [address], [place] documented in this encounter Visit Diagnoses Not on filedocumented in this encounter Additional Health Concerns Infection Onset Date Last Indicated Resolved Time C. difficile Rule-Out 02/03/2021 02/03/20212020 10:43 PM CASEWORKER INTAKE documented as of this encounter Care Teams Title Insurance Sales Representative Relationship Specialty Start Date End Date Tiffany Lua MD [address] [place] [address] PCP - General Family Medicine 07/13/15 04/25/22 Tiffany Lua MD [address] [place] [address] PCP - General Family Medicine 04/26/22 Tiffany Lua MD [address] [place] [address] Family Medicine 04/26/22 documented as of this encounter
[2024-08-09 17:45] LABS: Hematocrit 43.7 % (37.0-47.0); Hemoglobin 14.5 g/dL (12.0-15.0); Mean Corpuscular HGB Conc 33.2 g/dl (32-36); Mean Corpuscular Hemoglobin 31.6 pg (26-34); Mean Corpuscular Volume 95.2 fl (80-100); Mean Platelet Volume 10.8 fl (7.4-10.4); Platelet Count Result 266 k/mm3 (150-375); Red Blood Count 4.59 M/mm3 (4.2-5.4); Red Cell Distribution Width 13.7 % (11.5-14.5); White Blood Count 10.8 K/mm3 (4.5-10.0)
[2024-08-09 17:53] LABS: Hemoglobin A1C 5.4 % (<5.7)
[2024-08-09 17:58] LABS: Albumin Level 4.3 g/dL (3.5-5.1); Anion Gap 11 mmol/L (4-12); Blood Urea Nitrogen 15 mg/dL (7-17); Calcium 9.4 mg/dL (8.4-10.2); Carbon Dioxide 27 mmol/L (22-30); Chloride 101 mmol/L (98-107); Estimated Glomerular Filt Rate > 60; Glucose 100 mg/dL (65-110); Iron 114 ug/dL (37-170); Potassium 4.2 mmol/L (3.4-5.0); Sodium 139 mmol/L (137-145)
[2024-08-13 12:43] LABS: Vitamin B1 29 nmol/L (8-30)
== END 2024-08-09 17:12 | disposition home or self-care (01) ==
LOC: ANHLAB 17:14
PROVIDERS: Visit Provider Surgery Plastic and Reconstructive Surgery
DX: R63.4 Abnormal weight loss (principal)
CPT/HCPCS: 36415; 80048; 82040; 83036; 83540; 84134; 84425; 85027

== ENCOUNTER 2024-09-03 02:44 | Day surgery (SDC) | payer OTHER, SELFPAY ==
[2024-08-27 12:08] VITALS: BMI 30.4
--- NOTE | 2024-08-27 12:39 | PC.NURSE ---
Report to the Outpatient Waiting Room, entrance under the green pavilion located off [facility], at time _0630AM on date _09/03/24 . Planned Procedure Time: _0830AM .? Time changes happen often and if your time is changed the preop area will call you the afternoon before. - You and your visitor will be asked to self-screen and do not enter if you have any COVID symptoms. Please call surgeon if you need to reschedule. - A mask is optional within the hospital at this time. Patients may have clear liquids (water, carbonated beverages, clear teas, apple juice) until 3 hours prior to surgery with a maximum of 20 ounces. - No food from midnight until time of surgery and no smoking, or chewing tobacco (or any form of nicotine). No chewing gum, candy or mints. . Take only the following medications with a SIP of water on the morning of surgery: _ARMOUR THYROID; MIGRAINE MED IN NEEDED__TAKE YOUR AMEND DIRECTED BY FOR NAUSEA PROPHYLAXIS DO NOT STOP ANY OF YOUR OTHER PRESCRIPTION MEDICATIONS PRIOR TO SURGERY EXCEPT THE FOLLOWING Hold all vitamins and supplements for 3 days per anesthesiologist. Medications to discontinue per physician ALL SUPPLEMENTS Date to take last dose___08/31/24 Please no make-up, nail persian, hairspray, perfume, deodorant, or body powder the day of surgery.? No jewelry (including any body piercings) or valuables the day of surgery, leave them at home.? Please take a shower or bath the night before, or the morning of, surgery with an antibacterial soap.? Wear comfortable, loose fitting clothing.? - Jewelry must be removed prior to entering the operating room.? Rings and piercings that are not removed may be cut off. - The hospital will not accept responsibility for valuables.? - Please leave all valuables, including medications, at home the day of surgery. If you are going home after surgery, a licensed uke driver must drive you home.? - NO public transportation without another adult if you receive anesthesia. - We recommend that an adult stay with you for 24 hours following discharge. - We also recommend that you do not drive, make important decision, drink alcoholic beverages, or take any drugs that were not prescribed by your health care provider for at least 24 hours after your discharge time. Follow any additional instructions given to you from your surgeon. Telephone instructions given to __MARSHALL and asked if any additional questions and then verbalized understanding. Patient advised to call surgeon office or pre surgery nurse liaison [phone] if any additional questions.
[2024-09-03] VITALS (10 sets, daily range): BP systolic 95–139; BP diastolic 59–85; PULSE 73–93; RESP 12–16; TEMP 36.2–36.4; O2SAT 94–98
--- OUTSIDE RECORDS SUMMARY | 2024-09-03 02:46 | XMS_ITS | Encounter Summary ---
Author Organization [facility] Address [address] [place] [address] Care Team Providers Care Automotive Service Writer Name Role Phone Tiffany Lua MD Primary Care Provider [phone] Reason for Visit * Reason Onset Date Comments Medication Management 08/23/2024 Encounter Details Date Type Department Care Team (Late st Contact Info) Description 08/23/2024 Telephone [facility] [address] [place] [address] Tiffany Lua MD [address] [place] [address] Medication Management Social History Tobacco Use Types Packs/Day Years [...] Telephone Encounter - Tiffany Lua MD - 08/24/2024 6:49 PM CDT I again 08/24/2024 0957 [facility] to ask for the specifics on estradiolordering. Again, asked them to fax. Jss * Telephone Encounter - Tiffany Lua MD - 08/24/2024 12:22 AM CDT I called [facility] [phone] Asked for spec on estradiol 0.1% gel/cream. They to fax. Jss documented in this encounter Plan of Treatment Not on file documented as of this encounter Visit Diagnoses Not on filedocumented in this encounter Additional Health Concerns Assessment Noted Time PHQ-9 Depression Total Score: 13 023 11:44 AM PHOTOGRAMMETRIC COMPILATION SPECIALIST A Body Mass Index follow-up plan has been documented for the patient 05/24/2016 12:10 AM CDT documented as of this encounter Care Teams Automotive Service Writer Relationship Specialty Start Date End Date Tiffany Lua MD [address] [place] [address] PCP - General Family Medicine 09/14/15 documented as of this encounter
--- OUTSIDE RECORDS SUMMARY | 2024-09-03 02:46 | XMS_ITS | Encounter Summary ---
Author Organization [facility] Address [address] [place] [address] Care Team Providers Care Media Marketing Manager Name Role Phone Tiffany Lua MD Primary Care Provider [phone] Reason for Visit * Reason Comments Medication Refill Encounter Details Date Type Department Care Team (Late st Contact Info) Description 09/02/2024 Refill [facility] [address] [place] [address] Tiffany Lua MD [address] [place] [address] Social History Tobacco Use Types [...] Noted Time PHQ-9 Depression Total Score: 13 04/27/ 023 11:44 AM SHADER AND TONER A Body Mass Index follow-up plan has been documented for the patient 05/24/2016 12:10 AM CDT documented as of this encounter Care Teams Media Marketing Manager Relationship Specialty Start Date End Date Tiffany Lua MD [address] [place] [address] PCP - General Family Medicine 09/14/15 documented as of this encounter
--- OUTSIDE RECORDS SUMMARY | 2024-09-03 02:46 | XMS_ITS | Encounter Summary ---
Author Organization [facility] Address [address] [facility] [place] [address] Phone Care Team Providers Care Sequins Spooler Name Role Phone Tiffany Lua MD Primary Care Provider + Tiffany Lua MD Primary Care Provider + Tiffany Lua MD Unavailable [phone] Encounter Details Date Type Department Care Team (Late st Contact Info) Description 02/03/2021 Lab Requisition [facility] Laboratory Services [address] [place] [address] Tiffany Lua MD [address] [place] [address] Social History Tobacco Use Types [...] STOOL, CRYPTOSPORIDIUM ANTIGEN Routine 02/03/2021 8:09 AM CUSTOM HARVESTER STOOL, GIARDIA ANTIGEN Routine 8:09 AM CUSTOM HARVESTER documented in this encounter Results * STOOL, CRYPTOSPORIDIUM ANTIGEN (02/03/2021 8:09 AM CUSTOM HARVESTER) CRYPTOSPORIDIUM AG Negative Negative 2020 1:53 PM CUSTOM HARVESTER [facility] Other STOOL SPECIMEN / Unknown 02/03/2021 8:09 AM CUSTOM HARVESTER 02/03/2021 8:26 PM CUSTOM HARVESTER us Tiffany Lua MD BODY FLUIDS & STOOLS ORD ERABLES Final Result Performing Organization Address City/[facility] Co de Phone Number [facility] [address] [place] [address], [place] * STOOL, GIARDIA ANTIGEN (02/03/2021 8:09 AM CUSTOM HARVESTER) GIARDIA ANTIGEN Negative Negative 02/05/2021 1:53 PM CUSTOM HARVESTER [facility] Other STOOL SPECIMEN / Unknown 02/03/2021 8:09 AM CUSTOM HARVESTER 02/03/2021 8:27 PM CUSTOM HARVESTER us Tiffany Lua MD BODY FLUIDS & STOOLS ORD ERABLES Final Result Performing Organization Address [facility] de Phone Number [facility] [address] [place] [address], [place] documented in this encounter Visit Diagnoses Not on filedocumented in this encounter Additional Health Concerns Infection Onset Date Last Indicated Resolved Time C. difficile Rule-Out 02/03/2021 02/03/20212020 10:43 PM CUSTOM HARVESTER documented as of this encounter Care Teams Sequins Spooler Relationship Specialty Start Date End Date Tiffany Lua MD [address] [place] [address] PCP - General Family Medicine 07/13/15 04/25/22 Tiffany Lua MD [address] [place] [address] PCP - General Family Medicine 04/26/22 Tiffany Lua MD [address] [place] [address] Family Medicine 04/26/22 documented as of this encounter
--- OUTSIDE RECORDS SUMMARY | 2024-09-03 02:46 | XMS_ITS | Encounter Summary ---
Author Organization [facility] Address [address] [place] [address] Phone Care Team Providers Care Flower Cheniller Name Role Phone Tiffany Lua MD Primary Care Provider + Tiffany Lua MD Primary Care Provider + Tiffany Lua MD Unavailable [phone] Encounter Details Date Type Department Care Team (Late st Contact Info) Description 12/14/2019 Lab Requisition [facility] Laboratory Services [address] [place] [address] Mitch Tovar MD [address] [place] [address] Social History Tobacco Use Types Packs/Day [...] GROUP B STREPTOCOCCUS 12/15/2019 3:11 PM CDT [facility] Comment:DRUG OF CHOICE IS AM PICILLIN OR PENICILLIN CULTURE RESULTS ALSO MIXED GROWTH OF DISTAL URETHRA CONTAMINANTS. 12/15/2019 3:11 PM CDT [facility] Culture URINE SPECIMEN COLLECTION, CLEAN CATCH / Unknown 12/13/2019 7:30 PM CDT 12/14/2019 2:51 PM CDT us Mitch Tovar MD MICROBIOLOGY - GENERAL ORDERABLE S Final Result [facility] [address] [place] [address], documented in this encounter Visit Diagnoses Not on filedocumented in this encounter Additional Health Concerns Infection Onset Date Last Indicated Resolved Time C. difficile Rule-Out 02/03/2021 02/03/20212020 10:43 PM INSTRUCTOR BRIDGE documented as of this encounter Care Teams Flower Cheniller Relationship Specialty Start Date End Date Tiffany Lua MD [address] [place], [place] [id number] PCP - General Family Medicine 07/13/15 04/25/22 Tiffany Lua MD [address] [place], [place] [address] PCP - General Family Medicine 04/26/22 Tiffany Lua MD [address] [place], [place] [address] Family Medicine 04/26/22 documented as of this encounter
--- OUTSIDE RECORDS SUMMARY | 2024-09-03 02:46 | XMS_ITS | Clinical Summary ---
Author Organization [facility] Address [address] [place] [address] Phone Care Team Providers Care Pharmacy Technician Assistant Name Role Phone Tiffany Lua MD Primary Care Provider + Tiffany Lua MD Unavailable [phone] Allergies Active Allergy Reactions Criticality Noted Date [...] by mouth daily. Active Cholecalciferol (VITAMIN D3) 00038 UNITS Tablet Take by mouth daily. Active [...] Comments Blood Pressure 111/78 04/26/2022 1:38 AM RACE STARTER Pulse 80 04/26/2022 1:38 AM RACE STARTER Temperature 37.1 C (98.7 F) 04/25/2022 3:55 PM RACE STARTER Respiratory Rate 14 04/26/2022 1:38 AM RACE STARTER Oxygen Saturation 95% 04/26/2022 1:38 AM RACE STARTER Inhaled Oxygen Concentration - - Weight 93 kg (205 lb) 04/25/2022 3:55 PM RACE STARTER Height 162.6 cm (5' 4) 04/25/2022 3:55 PM RACE STARTER Body Mass Index 35.19 04/25/2022 3:55 PM RACE STARTER Plan of Treatment Health Maintenance Due Date [...] this topic Insurance [employer] ASA Care Teams Pharmacy Technician Assistant Relationship Specialty Start Date End Date Tiffany Lua MD [address] [place] [address] PCP - General Family Medicine 04/26/22 Tiffany Lua MD [address] [place] [address] Family Medicine 04/26/22
--- OUTSIDE RECORDS SUMMARY | 2024-09-03 02:46 | XMS_ITS | Encounter Summary ---
Author Organization [facility] Address [address] [facility] [place] [address] Phone Care Team Providers Care Carpentry Teacher Name Role Phone Tiffany Lua MD Primary Care Provider + Tiffany Lua MD Unavailable [phone] Encounter Details Date Type Department Care Team (Late st Contact Info) Description 10/04/2022 Lab Requisition [facility] Laboratory Services [address] [place] [address] Tiffany Lua MD [address] [place] [address] Social History Tobacco Use Types [...] F SEE NOTE 10/11/2022 12:30 PM CDT [facility] Comment: SOURCE: STOOL, STLP OVA AND PARASITE, MICROSCOPY, F FINAL No parasites seen. Cryptosporidium, Cyclospora, and microsporidia are not readily detected by this method. Single negative specimen does not rule out parasitic infection. Test Performed by: [facility] [place] [address] Certified Forklift Operator: Sammy Hidalgo M.D. Ph.D.; CLIA# [id number] Stool Non-Phlebotomy Collection / Unknown 10/03/2022 6:32 PM CDT 10/04/2022 9:49 PM CDT us Tiffany Lua MD LAB SEND OUTS Final Re sult [facility] documented in this encounter Visit Diagnoses Not on filedocumented in this encounter Care Teams Carpentry Teacher Relationship Specialty Start Date End Date Tiffany Lua MD [address] [place] [address] PCP - General Family Medicine 04/26/22 Tiffany Lua MD [address] [place] [address] Family Medicine 04/26/22 documented as of this encounter
--- OUTSIDE RECORDS SUMMARY | 2024-09-03 02:46 | XMS_ITS | Encounter Summary ---
Author Organization [facility] Address [address] [facility] [place] [address] Phone Care Team Providers Care Organ Pipe Finisher Name Role Phone Tiffany Lua MD Primary Care Provider + Tiffany Lua MD Primary Care Provider + Tiffany Lua MD Unavailable [phone] Encounter Details Date Type Department Care Team (Late st Contact Info) Description 02/25/[address] [facility] Laboratory Services [address] [place] [address] Tiffany Lua MD [address] [place] [address] Social History Tobacco Use Types [...] (CRP) HIGH SENSITIVE Routine 02/24/2022 4:19 PM GENERAL OFFICE ASSOCIATE documented in this encounter Results * (ABNORMAL) C-REACTIVE PROTEIN (CRP) HIGH SENSITIVE (02/24/2022 4:19 PM GENERAL OFFICE ASSOCIATE) CRP ULTRAQUANT 6.48(H) <5.00 mg/L 02/25/2022 9:42 PM GENERAL OFFICE ASSOCIATE [facility] Blood 02/24/2022 4:19 PM GENERAL OFFICE ASSOCIATE 02/25/2022 9:17 PM GENERAL OFFICE ASSOCIATE us Tiffany Lua MD CHEMISTRY ORDERABLES Fin al Result [facility] [address] [place] [address], documented in this encounter Visit Diagnoses Not on filedocumented in this encounter Care Teams Organ Pipe Finisher Relationship Specialty Start Date End Date Tiffany Lua MD [address] [place] [address] PCP - General Family Medicine 07/13/15 04/25/22 Tiffany Lua MD [address] [place] [address] PCP - General Family Medicine 04/26/22 Tiffany Lua MD [address] [place] [address] Family Medicine 04/26/22 documented as of this encounter
--- OUTSIDE RECORDS SUMMARY | 2024-09-03 02:46 | XMS_ITS | Clinical Summary ---
Author Organization [email or web address] Address [address] [place] [address] Care Team Providers Care Principal Mechanical Engineer Name Role Phone Tiffany Lua MD Primary Care Provider [phone] Source Comments This disclosure is being made pursuant to the [employer] program and maynot contain all information available regarding this patient.[email or web address] Allergies Active Allergy Reactions Criticality Noted Date [...] for Nausea. 15 tablet 04/19/19 23 Active prochlorperazine (COMPAZINE) 10 MG tablet Take 1 (one) [...] mouth nightly. 30 tablet 06/01/19 24 Active HYDROcodone-acet aminophen (NORCO) 5-325 MG per tabletIndication s:Pain, dental Take 1 (one) tablet by mouth every 6 (six) hours as needed for Pain. 10 tablet 06/05/19 24 Active LORazepam (ATIVAN) 1 MG tabletIndication s:Insomnia, unspecified type TAKE 1 TABLET BY MOUTH EVERY NIGHT AT BEDTIME NEEDED FOR SLEEP 20 tablet 08/03/19 24 Active silver sulfADIAZINE (SILVADENE) 1 % cream Apply to affected area on hand daily 50 g 08/10/19 24 Active butalbital-aceta minophen-caffein e 50-325-40 MG per tabletIndication s:Other migraine without status migrainosus, not intractable TAKE 1 TABLET BY MOUTH EVERY 4 HOURS NEEDED FOR HEADACHE 10 tablet 08/22/19 24 Active naltrexone 4.5 MG capsule Take 1 (one) capsule by mouth nightly. 90 capsule 3 09/11/19 24 Active fluconazole (DIFLUCAN) 150 MG tabletIndication s:Vaginal discharge Take 1 tablet, then repeat in 72 hours 2 tablet 09/13/19 24 Active acyclovir (ZOVIRAX) 5 % cream [...] DAILY 60 tablet 3 06/25/19 25 Active valACYclovir (VALTREX) 500 MG tablet TAKE 1 TABLET BY MOUTH DAILY. 30 tablet 3 07/28/19 25 Active thyroid (Basehor Thyroid) 90 MG tablet TAKE 1 TABLET BY MOUTH FIVE TIMES A WEEK AND ONE AND ONE-HALF TABLETS TWO DAYS WEEKLY 96 tablet 3 07/28/19 25 Active Ivermectin 1 % CREA Daily to rosacea on face 90 g 08/24/19 25 Active acyclovir (ZOVIRAX) 400 MG tablet TAKE 1 TABLET BY MOUTH TWICE DAILY 60 tablet 6 09/03/19 25 Active amphetamine-dext roamphetamine (ADDERALL) 10 MG tabletIndication s:Multiple sclerosis,Chroni c fatigue TAKE 1 TABLET BY MOUTH TWICE DAILY 60 tablet 09/03/19 25 Active Zepbound 15 MG/0.5ML SOAJ INJECT 15MG INTO THE SKIN ONCE WEEKLY 2 mL 09/03/19 25 Active acyclovir (ZOVIRAX) 400 MG tablet TAKE 1 TABLET BY MOUTH TWICE DAILY 60 tablet 6 11/17/19 24 025 Discontinued amphetamine-dext roamphetamine (ADDERALL) 10 MG tabletIndication s:Multiple sclerosis,Chroni c fatigue Take 1 (one) tablet (10 mg total) by mouth 2 (two) times daily. 60 tablet 06/26/19 25 025 Discontinued tirzepatide-weig ht management (Zepbound) 15 MG/0.5ML SOAJ Inject 15 (fifteen) mg into the skin once a week. 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 Hypovitaminosis D 07/13/2015 Encounters Date Type Department Care Team Description 09/02/[address] [address] Tiffany Lua MD 09/02/[address] [phone] Tiffany Lua MD Multiple sclerosis; Chronic fatigue 08/28/2024 Orders Only [address] [address] Tiffany Lua MD 08/23/[address] [phone] Tiffany Lua MD Medication Management 08/21/2024 3:45 PM CDT Office Visit [address] [phone] Tiffany Lua MD Rectus diastasis (Primary Dx); Intertrigo; Vaginal dryness; Chronic pain syndrome; Chronic fatigue; Multiple sclerosis; GRANT (obstructive sleep apnea); Rosacea 08/21/2024 Travel 08/14/[address] [phone] Brittany Wood RN vaginal dryness and bags under her eyes 07/29/[address] [phone] Brittany Wood RN upcoming surgery 07/27/[address] [phone] Tiffany Lua MD 07/18/2024 Orders Only [facility] Tiffany Lua MD 06/24/[address] [phone] Brittany Wood RN order for mammogram 06/24/[address] [phone] Tiffany Lua MD Multiple sclerosis; Chronic fatigue from Last 3 Months Immunizations Immunization Administration [...] Sign Reading Time Taken Comments Blood Pressure 118/70 08/21/2024 4:22 PM CDT Pulse 79 08/21/2024 4:22 PM CDT Temperature 36.4 C (97.5 F) 08/21/2024 4:22 PM CDT Respiratory Rate 18 08/21/2024 4:22 PM CDT Oxygen Saturation 97% 08/21/2024 4:22 PM CDT Inhaled Oxygen Concentration - - Weight 78.5 kg (173 lb) 08/21/2024 4:22 PM CDT Height 162.6 cm (5' 4) 05/17/2024 4:50 PM CDT Body Mass Index 29.7 05/17/2024 4:50 PM CDT Plan of Treatment Health Maintenance Due Date Last Done Comments CT Colonography 1972 Colonoscopy 1972 Colorectal Cancer Screening 1972 Fecal DNA Test 1972 HPV 1972 Lab-Hepatitis C Screening 1972 Sigmoidoscopy 1972 Annual Wellness Visit 1990 FOBT/FIT 1992 Pneumococcal Vaccines 50+ (2 of 2 - PCV) 2022 01/24/2020 Zoster (Shingles) Vaccine 50+ (1 of 2) 2022 Breast Cancer Screening-Mammogram 01/27/2023 01/27/2021, 07/30/2018 COVID-19 Vaccine ( - 2023- season) 2023 Lab-Diabetes Screening 08/29/2024 , 02/23/2022, 09/22/2021, Additional history exists Influenza Vaccine (#1) 2024 12/23/2019 Lab-Cholesterol Screening 08/29/20282023, 05/13/2020, 12/12/2016 Tetanus/Pertussis Vaccine Teen/Adult (3 - Td or Tdap) 09/04/2031 09/03/2021, 05/10/2007 RSV Adult (1 - 1-dose 75+ series) 10/16/2047 Cervical Cancer Screening Discontinued HIB Vaccine Aged Out No longer eligi ble based on patient's age to complete this topic HPV Vaccine (9-26yo & Shared Decision 27-45yo) Aged Out No longer eligi ble based [...] CDT) Cholesterol 209(H) 0 - 200 mg/dL [facility] Comment:Cholesterol borderli ne high, 200-239 mg/dL. Clinical correlation is essential. Triglycerides 189 0 - 200 mg/dL [facility] HDL Cholesterol 40(L) >60 mg/dL [facility] LDL, Calculated 131.2 mg/dL [facility] Comment: <100 Optimal 100-129 Near Optimal/Above Optimal 130-159 Borderline High 160-189 High >or =190 Very High Cholesterol/HDL Ratio 5.2 [facility] Comment:HDL/Chol Ratio [place] ge Risk 1:4.4-1:7.0, Clinical Correlation essential. Blood 08/30/2023 11:0 0 AM CDT 08/30/2023 11:00 AM CDT Comment:- Narrative [facility] - 08/30/2023 3:59 PM CDT Testing performed at [facility], [address] [place] [address]. CLIA [id number] Phone [phone] Ext [phone] Wiping Rag Washer William Tanner MD us Tiffany Lua MD LAB BLOOD ORDERABLES Final Result [facility] [address] [place] [address] [phone] * Comprehensive metabolic panel (08/30/2023 11:00 AM CDT) Glucose 91 60 - 100 mg/dL [facility] Comment: Fasting Plasma Glucose (FPG) <100 MG/DL Impaired Fasting Glucose (IFG) 100-125 MG/DL Provisional Diagnosis of Diabetes Mellitus > or = 126 MG/DL (Diagnosis Must Be Confirmed) BUN 13 10 - 20 mg/dL [facility] Creatinine 0.72 0.60 - 1.20 mg/dL [facility] Glomerular Filtration Rate Estimate 101 >90 mL/min/1.7 3m2 [facility] Comment:The estimated GFR peters s not been validated for women or patients with serious comorbid conditions, or with extremes of body size, muscle mass, or nutritional status. Calcium 9.9 8.4 - 10.2 mg/dL [facility] Sodium 139 136 - 145 mmol/L [facility] Potassium 4.2 3.5 - 4.6 mmol/L [facility] Chloride 105 99 - 111 mmol/L [facility] CO2 25.3 21.0 - 32.0 mmol/L [facility] Albumin 4.1 3.5 - 5.0 g/dL [facility] Total Protein 7.4 6.1 - 8.0 g/dL [facility] Bilirubin Total 0.3 0.2 - 1.2 mg/dL [facility] Alkaline Phosphatase 46 40 - 150 U/L [facility] AST 16 5 - 34 U/L [facility] ALT 20 0 - 55 U/L [facility] Blood 08/30/2023 11:0 0 AM CDT 08/30/2023 11:00 AM CDT Comment:- Narrative [facility] - 08/30/2023 3:59 PM CDT Testing performed at [facility], [address] [place] [address]. CLIA [id number] Phone [phone] Ext [phone] Wiping Rag Washer William Tanner MD us Tiffany Lua MD LAB BLOOD ORDERABLES Final Result [facility] [address] [place] [address] [phone] * MM Digital Bilateral Diagnostic Mammogram (01/27/2021) Anatomical Region Laterality Modality Breast Bilateral Mammography Tiffany Lua MD IMG MAMMOGRAPHY ORDERABLES Final Result from Last 3 Months or Most Recently Relevant to Health Maintenance Insurance [place] [id number] Care Teams Principal Mechanical Engineer Relationship Specialty Start Date End Date Tiffany Lua MD [address] [place] [phone] PCP - General Family Medicine 09/14/15
--- OUTSIDE RECORDS SUMMARY | 2024-09-03 02:46 | XMS_ITS | Encounter Summary ---
Author Organization [facility] Address [address] [place] [address] Care Team Providers Care Diamond Polisher Name Role Phone Tiffany Lua MD Primary Care Provider [phone] Reason for Visit * Reason Onset Date Comments vaginal dryness and bags under her eyes 08/15/19 25 Encounter Details Date Type Department Care Team (Late st Contact Info) Description 08/14/2024 Telephone [facility] [address] [place] [address] Brittany Wood RN [address] [place] [address] vaginal dryness and bags under her eyes Social History Tobacco Use Types Packs/Day Years [...] encounter Miscellaneous Notes * Telephone Encounter - Brittany Wood RN - 08/14/2024 5:58 PM CDT Notified and vpu. Brittany Wood RN * Telephone Encounter - Tiffany Lua MD - 08/14/2024 5:23 PM CDT This can be discussed at the 08/21/2024 appt. Jss * Telephone Encounter - Brittany Wood RN - 08/14/2024 4:30 PM CDT Call from patient, she was having coffee with a friend this morning and she mentioned to her that she has started using a script for vaginal estrogen that has helped with the dryness and the constantfeeling of a UTI and also with the bags under her eyes she will use the Estrodial tropical cream for that and believes these creams would really help her. Winston and Alex Lee. Brittany Wood RN documented in this encounter Plan of Treatment Not on file documented as of this encounter Visit Diagnoses Not on filedocumented in this encounter Additional Health Concerns Assessment Noted Time PHQ-9 Depression Total Score: 13 023 11:44 AM RECORDER OF DEEDS A Body Mass Index follow-up plan has been documented for the patient 05/24/2016 12:10 AM CDT documented as of this encounter Care Teams Diamond Polisher Relationship Specialty Start Date End Date Tiffany Lua MD [address] [place] [phone] PCP - General Family Medicine 09/14/15 documented as of this encounter
--- OUTSIDE RECORDS SUMMARY | 2024-09-03 02:46 | XMS_ITS | Encounter Summary ---
Author Organization [facility] Address [address] [place] [address] Phone Care Team Providers Care Electronic Systems Technician Name Role Phone Tiffany Lua MD Primary Care Provider + Tiffany Lua MD Primary Care Provider + Tiffany Lua MD Unavailable [phone] Encounter Details Date Type Department Care Team (Late st Contact Info) Description 07/10/2020 Lab Requisition [facility] Services [address] [place] [address] Tiffany Lua MD [address] [place] [address] Social History Tobacco Use Types [...] AM CDT) INDEX (S/C) 0.0 <1.4 S/C [facility] ARCH [id number] A 07/11/2020 9:45 AM CDT [facility] INTERP, SARS-COV-2 IGG Negative Negative [facility] ARCH [id number] A 07/11/2020 9:45 AM CDT [facility] Blood 07/10/2020 10:4 1 AM CDT 07/10/2020 9:44 PM CDT Narrative [facility] - 07/11/2020 9:45 AM CDT This test [...] due to past or present infection with [id number] coronavirus strains, such as coronavirus HKU1, NL63, OC43, or 229E. Not for the screening of donated blood. IGG: Information for Healthcare Providers: https://www.fda.gov/media/079884/download Information for Patients: https://www.fda.gov/media/096007/download IGM: Information for Healthcare Providers: https://www.fda.gov/media/049728/download Information for Patients: https://www.fda.gov/media/616912/download us Tiffany Lua MD CHEMISTRY ORDERABLES Fin al Result [facility] [address] [place] [address], documented in this encounter Visit Diagnoses Not on filedocumented in this encounter Additional Health Concerns Infection Onset Date Last Indicated Resolved Time C. difficile Rule-Out 02/03/2021 02/03/20212020 10:43 PM MILITARY COOK documented as of this encounter Care Teams Electronic Systems Technician Relationship Specialty Start Date End Date Tiffany Lua MD [address], [place] [phone] PCP - General Family Medicine 07/13/15 04/25/22 Tiffany Lua MD [address], [place] [phone] PCP - General Family Medicine 04/26/22 Tiffany Lua MD [address] [place] [address] Family Medicine 04/26/22 documented as of this encounter
--- OUTSIDE RECORDS SUMMARY | 2024-09-03 02:46 | XMS_ITS | Encounter Summary ---
Author Organization [facility] Address [address] [facility] [place] [address] Phone Care Team Providers Care Supervisor Parking Lot Name Role Phone Tiffany Lua MD Primary Care Provider + Tiffany Lua MD Primary Care Provider + Tiffany Lua MD Unavailable [phone] Encounter Details Date Type Department Care Team (Late st Contact Info) Description 02/03/2021 Lab Requisition [facility] Laboratory Services [address] [place] [address] Tiffany Lua MD [address] [place] [address] Social History Tobacco Use Types [...] FECES, DIAMOND OAP Routine 02/03/2021 8:09 AM COMPUTER ARTIST documented in this encounter Results * OVA AND PARASITE, CONCENTRATE AND PERMANENT SMEAR, MICROSCOPY, FECES, DIAMOND OAP (02/03/2021 8:09 AM COMPUTER ARTIST) PARASITIC EXAMINATION ([id number]) SEE NOTE 02/07/2021 4:04 PM COMPUTER ARTIST [facility] Comment: SOURCE: STOOL OVA AND PARASITE, MICROSCOPY, F FINAL No parasites seen. Cryptosporidium, Cyclospora, and microsporidia are not readily detected by this method. Single negative specimen does not rule out parasitic infection. Test Performed by: [facility] [address] [place] [address] Band Tumbler: Sammy Hidalgo M.D. Ph.D.; CLIA# [id number] Other 02/03/2021 8:09 AM COMPUTER ARTIST 02/03/2021 8:27 PM COMPUTER ARTIST us Tiffany Lua MD BODY FLUIDS & STOOLS ORD ERABLES Final Result [address] [address], documented in this encounter Visit Diagnoses Not on filedocumented in this encounter Additional Health Concerns Infection Onset Date Last Indicated Resolved Time C. difficile Rule-Out 02/03/2021 02/03/20212020 10:43 PM COMPUTER ARTIST documented as of this encounter Care Teams Supervisor Parking Lot Relationship Specialty Start Date End Date Tiffany Lua MD [address] [place] [phone] PCP - General Family Medicine 07/13/15 04/25/22 Tiffany Lua MD [address] [place] [phone] PCP - General Family Medicine 04/26/22 Tiffany Lua MD [address] [place] [phone] Family Medicine 04/26/22 documented as of this encounter
--- OUTSIDE RECORDS SUMMARY | 2024-09-03 02:46 | XMS_ITS | Encounter Summary ---
Author Organization [facility] Address [address] [place] [address] Care Team Providers Care Contact Lens Lathe Operator Name Role Phone Tiffany Lua MD Primary Care Provider [phone] Reason for Visit * Reason Comments Medication Refill Encounter Details Date Type Department Care Team (Late st Contact Info) Description 09/02/2024 Refill [facility] [address] [place] [address] Tiffany Lua MD [address] [place] [address] Multiple sclerosis; Chronic fatigue Social History Tobacco Use Types Packs/Day Years [...] documented as of this encounter Visit Diagnoses Diagnosis Multiple sclerosis Chronic fatigue Other malaise and fatigue documented in this encounter Additional Health Concerns Assessment Noted Time PHQ-9 Depression Total Score: 13 023 11:44 AM FIFTH GRADE TEACHER A Body Mass Index follow-up plan has been documented for the patient 05/24/2016 12:10 AM CDT documented as of this encounter Care Teams Contact Lens Lathe Operator Relationship Specialty Start Date End Date Tiffany Lua MD [address] [place] [phone] PCP - General Family Medicine 09/14/15 documented as of this encounter
--- OUTSIDE RECORDS SUMMARY | 2024-09-03 02:46 | XMS_ITS | Clinical Summary ---
Author Organization [facility] Address [address] [place] [address] Care Team Providers Care Human Resources Compliance Manager Name Role Phone Shirin Keen APRN, NP-C Unavailable [phone] Tiffany Lua MD Primary Care Provider + Allergies Active Allergy Reactions Criticality Noted Date Comments Tape Rash Low 03/02/2022 Bacitracin-Polymyxin B Hives 07/03/2017 Iodine Hives 03/02/2022 Latex Hives 07/03/2017 Morphine And Codeine Nausea and Vomiting 2022 Medications amphetamine-dex troamphetamine 10 MG tablet Take 1 tablet by mouth daily. 0 04/25/2017 Active gabapentin 400 MG capsule Take 400 mg by mouth 3 (three) times daily. 1 05/10/2017 Active topiramate 100 MG tablet TAKE 1 TABLET BY MOUTH 2 (TWO) TIMES DAILY. 1 05/10/2017 Active acyclovir (ZOVIRAX) 400 MG tablet Take 400 mg by mouth 2 (two) times daily. Active thyroid (ARMOUR) 120 MG OR TABS tablet Take 1 tablet by mouth daily. Active Butalbital-APAP -Caffeine (ACETAMINOPHEN- CAFF-BUTALBITAL OR) Take 1 tablet by mouth every 4 (four) hours as needed. 50-325-40 mg per tablet Active fluticasone propionate (FLONASE) 50 MCG/ACT nasal spray 2 sprays by Each Nostril route daily. Active mirabegron ER (MYRBETRIQ) 25 MG 24 hr tablet Take 25 mg by mouth daily. Active omeprazole (PRILOSEC) 40 MG capsule Take 40 mg by mouth 2 (two) times a day. Active semaglutide-padmini ght management (WEGOVY) 0.25 mg/dose injection (PEN) Inject 0.25 mg into the skin once a week. Active tiZANidine (ZANAFLEX) 2 MG tablet Take 2 mg by mouth nightly as needed. Active VALACYCLOVIR HCL OR Take 500 mg by mouth daily. Active metoprolol tartrate (LOPRESSOR) 100 MG tablet Take 1 tablet, 1 hour prior to the test; bring 2nd tablet with you to the test 2 tablet 03/03/2022 Active NALTREXONE HCL OR Take 4.75 mg by mouth daily. Active methylphenidate CR (CONCERTA) 36 MG tablet Take 36 mg by mouth every morning. Active Active Problems Problem Noted Date Diagnosed Date Shortness of breath 03/03/2022 Family History Medical History Relation Comments Hypertension Brother Heart Disease Maternal Grandfather Hyperlipidemia Maternal Grandfather Hypertension Maternal Grandfather Hypertension Maternal Grandmother Stroke Maternal Grandmother Hypertension Mother Heart Disease Paternal Grandfather Hyperlipidemia Paternal Grandfather Hypertension Paternal Grandfather Heart Disease Paternal Grandmother Hypertension Paternal Grandmother Relation Status Comments Brother Maternal Grandfather Maternal Grandmother Mother Paternal Grandfather Paternal Grandmother Social History Tobacco Use Types Packs/Day Years Used Date Smoking Tobacco: Never Tobacco Cessation:Counseling Given: Not Answered Alcohol Use Standard Drinks/Week Comments Yes 0 (1 standard drink = 0.6 oz pur e alcohol) Comments No Sex and Gender Information Value Date Recorded Sex Assigned at Not on file Legal Sex Female 8:52 PM CDT Gender Identity Not on file Sexual Orientation Not on file Last Filed Vital Signs Vital Sign Reading Time Taken Comments Blood Pressure 119/72 03/14/2022 12:58 PM CHILD NUTRITION MANAGER Pulse 73 03/14/2022 12:58 PM CHILD NUTRITION MANAGER Temperature 36.9 C (98.4 F) 07/03/2017 10:06 AM CDT Respiratory Rate 18 03/03/2022 2:23 PM CHILD NUTRITION MANAGER Oxygen Saturation 96% 03/14/2022 12: 58 PM CHILD NUTRITION MANAGER Inhaled Oxygen Concentration - - Weight 90.2 kg (198 lb 12.8 oz) 03/03/2022 2:23 PM CHILD NUTRITION MANAGER Height 165.1 cm (5' 5) 03/03/2022 2:23 PM CHILD NUTRITION MANAGER Body Mass Index 33.08 03/03/2022 2:23 PM CHILD NUTRITION MANAGER Plan of Treatment Health Maintenance Due Date Last Done Comments Colorectal Cancer Screening Colonoscopy (10 Years) 1972 Annual Physical 10/16/1975 Hepatitis C 1990 Hepatitis B Vaccines (1 of 3 - 19+ 3-dose series) 10/16/1991 Mammogram Screening 2012 Pneumococcal Vaccine: 50+ Years (2 of 2 - PCV) 2022 01/24/2020 Zoster Vaccines (1 of 2) 2022 COVID-19 Vaccine (1 - 2023-2 5 season) 2023 DTaP, Tdap and Td Vaccines ( 2 - Td or Tdap) 09/04/2031 09/03/2021, 05/10/2007 Meningococcal B Vaccine Aged Out No l onger eligible based on patient's age to complete this topic Meningococcal Vaccine Aged Out No ed leighton eligible based on patient's age to complete this topic RSV Immunizations Under 20 Months Aged Out No longer eligible b ased on patient's age to complete this topic Insurance [employer] Care Teams Human Resources Compliance Manager Relationship Specialty Start Date End Date Tiffany Lua MD PCP - General FAMILY PRACTICE 03/03/22 Shirin Keen APRN, JOINT TERMINAL ATTACK CONTROLLER-C NURSE PRACTITIONER GERONTOLOGY 03/02/22
--- OUTSIDE RECORDS SUMMARY | 2024-09-03 02:46 | XMS_ITS | Encounter Summary ---
Author Organization [facility] Address [address] [facility] [place] [address] Phone Care Team Providers Care Concrete Foreman Name Role Phone Tiffany Lua MD Primary Care Provider + Tiffany Lua MD Primary Care Provider + Tiffany Lua MD Unavailable [phone] Encounter Details Date Type Department Care Team (Late st Contact Info) Description 02/03/2021 Lab Requisition [facility] Laboratory Services [address] [place] [address] Tiffany Lua MD [address] [place] [address] Social History Tobacco Use Types [...] BY PCR Routine 02/03/2021 8 :09 AM TRUCK TRAILER FINAL INSPECTOR documented in this encounter Results * C. DIFFICILE BY PCR (02/03/2021 8:09 AM TRUCK TRAILER FINAL INSPECTOR) C DIFF TOXIN DNA BY PCR Negative Negative, Invalid [facility] CEPHEID GENEXPERT 02/03/2021 10:43 PM TRUCK TRAILER FINAL INSPECTOR [facility] Other STOOL SPECIMEN / Unknown 02/03/2021 8:09 AM TRUCK TRAILER FINAL INSPECTOR 02/03/2021 8:29 PM TRUCK TRAILER FINAL INSPECTOR us Tiffany Lua MD MICROBIOLOGY - GENERAL O RDERABLES Final Result [facility] [address] [place] [address], documented in this encounter Visit Diagnoses Not on filedocumented in this encounter Additional Health Concerns Infection Onset Date Last Indicated Resolved Time C. difficile Rule-Out 02/03/2021 02/03/20212020 10:43 PM TRUCK TRAILER FINAL INSPECTOR documented as of this encounter Care Teams Concrete Foreman Relationship Specialty Start Date End Date Tiffany Lua MD [address] [place] [address] PCP - General Family Medicine 07/13/15 04/25/22 Tiffany Lua MD [address] [place] [phone] PCP - General Family Medicine 04/26/22 Tiffany Lua MD [address] [place] [address] Family Medicine 04/26/22 documented as of this encounter
--- OUTSIDE RECORDS SUMMARY | 2024-09-03 02:46 | XMS_ITS | Encounter Summary ---
Author Organization [facility] Address [address] [place] [address] Care Team Providers Care Door Puller Name Role Phone Tiffany Lua MD Primary Care Provider [phone]- [phone] Encounter Details Date Type Department Care Team (Late st Contact Info) Description 03/14/2024 Telephone [facility] [address] [place] [address] Tiffany Lua MD [address] [place] [address] Social History Tobacco Use Types [...] Tiffany Lua MD - 03/14/2024 12:17 PM PREPARATION CENTER COORDINATOR Again, the same labs were sent from [facility] that I can see on [employer] from 02/26/2024. None of the requested labs is sent, nor on [employer]. B12, progesterone, vit D, estradiol which is page 3 of the 02/14/2024 labs. The orders are scanned into system. [facility] lab to check why these not done. Jss ARATION CENTER COORDINATOR * Telephone Encounter - Tiffany Lua MD - 03/14/2024 12:09 AM PREPARATION CENTER COORDINATOR I called [facility] Med Records again - on 03/07/2024. Looking for pending labs from 02/26/2024 that are not in [employer]: Vit D, Vit B12, progesterone, estradiol. jss ARATION CENTER COORDINATOR documented in this encounter Plan of Treatment Not on file documented as of this encounter Visit Diagnoses Not on filedocumented in this encounter Additional Health Concerns Assessment Noted Time PHQ-9 Depression Total Score: 13 023 11:44 AM PREPARATION CENTER COORDINATOR A Body Mass Index follow-up plan has been documented for the patient 05/24/2016 12:10 AM CDT documented as of this encounter Care Teams Door Puller Relationship Specialty Start Date End Date Tiffany Lua MD [address] [place] [id number] PCP - General Family Medicine 09/14/15 documented as of this encounter
--- OUTSIDE RECORDS SUMMARY | 2024-09-03 02:47 | XMS_ITS | Data Portability ---
Author Organization [facility], [address] [place] [address] [place]rology ([place]) Address [address] [address] Care Team Providers Care [employer] Name Role Phone ITZEL FORBES Primary Care Provider Assessment No assessment recorded. Plan of Treatment Reminders Order Date Submit Date Provider Last Modified By Organization Details Last Modified Time Details Appointments None recorded. Lab None recorded. Referral None recorded. Procedures None recorded. Surgeries None recorded. Imaging None recorded. Medication Orders Augmentin 875 mg-125 mg tablet 2023 [id number], [address], [place], [id number], 14:32:24 fluconazole 150 mg tablet 2023 024 [id number], [address], [place], [id number], 14:32:24 Patient TargetsNo targets recorded. Patient Instructions Encounter Date Encounter Id Patient Instructions Last Modified By Organization Details Last Modified Time 06/04/2023 [id number] Take antibiotics as prescribed. 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 [...] in Arterial blood by Pulse oximetry Systolic And Diastolic Provider Name and Address Organization Details Last Updated DateTime 4 45653.0 7 g 97.3 [degF] 90 /min 16 /min 98 % 98 % 128/82 mm[Hg] Tess Lloyd [facility] 14:14:30 Social History None recorded. Functional Status None recorded. Mental Status None recorded. Family History Nothing Reported. Medical History No medical history recorded. 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 [facility] ([place]) [address] [place] [address] 06/04/2023 14:02:18 06/04/2023 14:35:47 Disorder of teeth AND/OR supporting structures 115509377 K08.9 Candidiasis of vagina 72 930950 B37.31 Health Concerns Section Related Observation LastModified by Organization Detai ls LastModified Time None Recorded Concern Status LastModified by Organization Details LastModified Time None Recorded Advance Directives Directive None Recorded Payers Insurance Date Sequence Insurance Name Policy Number Policy Dorsey Covered Member ID Dorsey Member ID Guarantor Name 06/04/2023 1 [facility] [id number] Gracy Machuca Rob [id number] Gracy Davis Notes Date Note Type Note [...] been a smoker. ANGELITA PENA [address] [place] [address], [phone], [place] [facility] 06/04/2023 15:50:30 OBGyn Episode No OBEpisode recorded.
--- NOTE | 2024-09-03 06:49 | P.OP_ITS ---
Procedure Note - Detailed Date of Procedure 09/03/24 Pre-op Diagnosis Skin Laxity, Micromastia, Breast Ptosis Post-op Diagnosis Same Procedure Performed 1. Bilateral augmentation mastopexy 2. Progressive tension abdominoplasty with suction lipectomy Surgeon Raffi Bauer MD Anesthesia General Findings Inverted T Superior Medial Pedicle Bilateral Natrelle SoftTouch 440 cc Right: REF# [id number] SN [id number] Left: REF# [id number] SN [id number] Tissue removed: 1,713 grams Lipoaspirate: 4,000 cc Description of Procedure They are here today for the above procedures. Previously and again today the risks, benefits, alternatives were discussed in extensive detail. I wanted them to be very realistic about the risks involved as well as expectations. We discussed aftercare and what to monitor for. I was very upfront about the risks of wound breakdown leading to loss of skin, open wounds, and need for additional procedures with permanent abdominal deformity. We discussed DVT/PE risks and management. Made sure answered all of their questions to their satisfaction today and consent was obtained. They were marked in the preoperative holding area with their verification. The patient was taken to the operating room. Anesthesia was provided by anesthesi ology. A Ortiz catheter was started. Posterior Placed prone on the operating room table with care taken to protect from injury. Prepped and draped in a standard sterile fashion. A surgical time-out was taken. Stab incisions were made and tumescent solution was infiltrated. Once adequate time was allowed for hemostasis a 5mm basket and 4mm corina cannula were u tilized to complete suction lipectomy based on S.A.F.E. technique in multiple planes and passes. Suction lipectomy continued to result based on pre-operative planning, intra-operative observation, and rolling pinch test which were in full agreement. Patient was then placed supine with care taken to protect from injury. Breast She was prepped and draped in a standard sterile fashion. Tumescent was utilized laterally to provide field block Tegaderm nipple Singh were placed. A 15 blade used to make an incision just superior to the inframammary fold leaving a cusp of de-epithelized tissue at the t junction. Dissection was continued until the chest wall as identified. I elevated a subfascial pocket in the appropriate dimensions based on our preoperative planning for the implant. I then copiously irrigated with saline solution and verified a strict hemostasis. Next used Phase One to irrigate the pocket and washed my gloves . We washed the implant immediately upon opening it with this solution and only opened it when we needed it. I used implant funnel and no-touch technique. The implant was introduced into the pocket using the funnel. Having verified positioning of the implant this was closed using 2-0 PDS. I tailor tacked the breast into position. Placed her in a sitting position. Verified the nipple-areolar location based on preoperative planning as well as intraoperative observations and measurements in full agreement. Suction lipectomy was completed laterally with a 4mm corina cannula. This was based on preoperative planning, intraoperative observation, and rolling pinch which was in full agreement. She was placed supine. I de-epithelialized the pedicle. I then removed the inferior central portion of the breast need making sure the implant was well protected. I elevated medial and lateral tissue flaps as well for planned closure. I closed along the IMF with 2-0 Stratafix. Along the vertical with 2-0 PDS. I closed around the areola with 3-0 strata fix. 3-0 Monocryl along the vertical. 3-0 Stratafix along the IMF. I finally closed everything with running subcuticular 4-0 Monocryl, Brijjits and tissue glue. Abdomen I placed the patient in a flexed position to verify the upper and lower markings would reach. I then placed supine. A thorough abdominal examination was completed. Stab incisions were made and tumescent solution infiltrated. Stab incisions were made and tumescent solution was infiltrated. Once adequate time was allowed for hemostasis a 5mm basket and 4mm corina cannula were utilized to complete suction lipectomy based on S.A.F.E. technique in multiple planes and passes. Suction lipectomy continued to result based on pre-operative planning, intra-operative observation, and rolling pinch test which were in full agreement. A 10 blade was used to make the upper incision. I continued dissection down to the level of fascia. Elevated just what was necessary for repair of the diastasis. I then again flexed the bed to verify the upper skin flap would reach the lower markings without tension. Once verified I placed her supine once again and a 10 blade used to make the lower incision. I elevated up to level the umbilicus and left the umbilicus intact on a well-vascularized stalk. The intervening tissue was removed. A 2 mm blunt cannula with 0.5% bupivacaine was injected deep to the fascia bilaterally. I plicated the diastasis recti using 0 PDO Stratafix barbed suture. This was in 2 separate layers using 2 separate sutures as well. After the patient was flexed (below) plicated the fascia with 0 PDO Stratafix in two separate layers. This was in two transverse rows one supraumbilical and one infraumbilical. The patient was flexed and starting from superior to inferior began plication using 2-0 Vicryl to obliterate all space in a standard progressive tension fashion. At the umbilicus I marked out the location of the skin and inset this with 3-0 Monocryl and 4-0 Vicryl. I continued the remainder of the plication using 2-0 Vicryl until I reached my lower planned scar line. I trimmed any excess skin of the upper flap making sure this was a tension-free closure. 15 Evert drain was placed. I then approximated using a 3 point suture with 2-0 Vicryl followed by 2-0 PDO Stratafix, 3-0 Stratafix ,running subcuticular 4-0 Monocryl, and tissue glue. Fluffs and an abdominal binder were placed. The patient was transferred to the bed in a flexed position. [place] and taken to the PACU without difficulty. All instrument and sponge counts were correct at the end of the case. Estimated Blood Loss 120 Drains Yes (15 Evert) Packing No Pathology None sent Complications No immediate complications Condition Stable Disposition PACU
--- NOTE | 2024-09-03 06:49 | WPDHPUPDATE1 ---
History and Physical Update Update Date/Time: 09/03/24 06:49 History and Physical has been reviewed, including an updated exam of the patient. There are NO changes in the patient's condition. Risks, benefits, and alternatives have been discussed and questions answered. Patient agrees to proceed with procedure.
--- NOTE | 2024-09-03 07:28 | WPDANESEPPF ---
Anes - Initial Pre Proc Eval Procedure: Operation Date: 09/03/24 08:30 Proposed Procedures p Bilateral Breast Augmentation - Raffi Bauer MD s Bilateral Breast Mastopexy - Raffi Bauer MD s Abdominoplasty with Liposuction - Raffi Bauer MD Date/Time: 09/03/24 07:28 Surgeon: Raffi Bauer MD Pre Op Diagnosis: Skin Laxity, Micromastia, Breast Ptosis Patient Data Age: 53 Gender: F Height: 1.63 m Weight: 80.4 kg Allergies Allergy/AdvReac Type Severity Reaction Status Date / Time No Known Allergies Allergy Verified 08/27/24 12:37 Home Medications ?Medication ?Instructions ?Recorded ?Confirmed ?Type acyclovir 400 mg tablet 400 mg PO Q12H 08/27/24 08/27/24 History aprepitant 40 mg capsule 40 mg PO ONCE 08/27/24 08/27/24 History baclofen 10 mg tablet 10 mg PO Q12H 08/27/24 08/27/24 History fasfdyouto-rkfcfvalkecze-dwftkdvt 1 tablet PO Q4-6H PRN headache 08/27/24 08/27/24 History 50 mg-325 mg-40 mg tablet thyroid (pork) 90 mg tablet 90 mg PO DAILY 08/27/24 08/27/24 History ([place] Thyroid) tirzepatide (weight loss) 15 15 mg subcut WEEKLY WEIGHT LOSS 08/27/24 08/27/24 History mg/0.5 mL subcutaneous pen injector (Zepbound) tizanidine 2 mg tablet 2 mg PO HS 08/27/24 08/27/24 History valacyclovir 500 mg tablet 500 mg PO DAILY 08/27/24 08/27/24 History Patient hx anesthesia problems: none Family hx anesthesia problems: none Results Review: All pre-operative results and documents have been reviewed as part of the pre-operative evaluation. [facility] Past Medical History Medical History (Updated 09/03/24 @ 07:28 by Dom Beckett MD) Obesity Surgical History Surgical History (Updated 09/03/24 @ 07:29 by Dom Beckett MD) H/O: hysterectomy Social History Social History Smoking packs per day: 0.5 Smoking cigarettes per day: 10.0 Years smoked: 10 Smoking pack-years: 5.00 Smoking status: Former smoker Tobacco type: cigarettes Smoking end date: 02/27/97 Alcohol intake: current Substance use: never Substance use type: does not use Living arrangements: with family Spiritual care concerns: No Anes - Eval Final PreProcedure Day of Procedure 09/03/24 07:28 Patient weight: obese Heart: regular rate and rhythm Lungs: clear to auscultation Airway: Mallampati scale class II Neurological: alert and oriented Last oral intake: >/= 8 hours ASA classification: II Emergent: no Anesthetic plan: proceed Anesthesia type and monitoring: general ETT and standard monitoring Results Review: All pre-operative results and documents have been reviewed as part of the pre-operative evaluation. Informed Consent: The patient's anesthetic plan and its attendant risks and benefits were discussed with the patient/family/POA. Questions were solicited and answers provided to the satisfaction of the patient/family/POA.
[2024-09-03] MEDS: LACTATED RINGERS 1,000 ML 30 ML IV CONT ×2 (07:45→16:13)
[2024-09-03] MEDS: SCOPOLAMINE 1 MG PATCH 1 PATCH TRANSDERM (07:50)
[2024-09-03] MEDS: ceFAZolin 2 GM/D5W 50 ML 2 GM/50 ML BAG IVPB (08:41)
[2024-09-03] MEDS: TRANEXAMIC ACID 1,000MG/ISO100 1,000 MG/100 ML BAG 200 MG IVPB (08:41)
[2024-09-03] MEDS: BUPIVACAINE/EPINEPHRINE 0.5% 30 ML VIAL 60 ML INFILTRATE (08:41)
[2024-09-03] MEDS: LACTATED RINGERS IRRIG 1,000 ML, LIDOCAINE 1% LOCAL INJ 50 ML, EPINEPHrine HCL INJ 1 MG... INFILTRATE (08:41)
--- NOTE | 2024-09-03 11:02 | SUR.OPER ---
Breast wounds irrigated with Phase I solution
[2024-09-03] MEDS: ceFAZolin 2 GM in SODIUM CHLORIDE 0.9% IV 50 ML 100 ML IVPB (12:40)
[2024-09-03] MEDS: HYDROmorphone HCL INJ (*CRX) 1 MG/ML SYR 0.25 MG IV PUSH ×4 (16:51→18:06)
[2024-09-03] MEDS: oxyCODONE HCL (*CRX) 5 MG TAB IR PO (18:06)
--- NOTE | 2024-09-03 18:41 | SUR.PHASEII ---
dr Bauer was notified about the oozing of tumesant. The pt was worried about the amount. Dr. Bauer was ok with this and pt was discharged.
== END 2024-09-03 18:30 | disposition home or self-care (01) ==
PROVIDERS: Visit Provider Surgery Plastic and Reconstructive Surgery
PROC: (CPT 19316; principal; 2024-09-03 08:30)
PROC: (CPT 19316; 2024-09-03 08:30)
PROC: (CPT 19316; 2024-09-03 08:30)
DX: Z41.1 Encounter for cosmetic surgery (principal); L57.4 Cutis laxa senilis; N64.82 Hypoplasia of breast; E07.9 Disorder of thyroid, unspecified; G35 Multiple sclerosis; E66.9 Obesity, unspecified; Z68.30 Body mass index [BMI] 30.0-30.9, adult; Z79.1 Long term (current) use of non-steroidal anti-inflammatories (NSAID); Z79.85 Long-term (current) use of injectable non-insulin antidiabetic drugs; Z98.890 Other specified postprocedural states; Z87.891 Personal history of nicotine dependence
CPT/HCPCS: 19316; 19325; 15877; 15830; 15847; 80307; J0690; A9270; J0171; J1100; J1171; J1580; J2003; J2004; J2250; J2405; J2704; J3010; J7120